=== PATIENT | female | born 2000 | race Caucasian/White ===

== ENCOUNTER 2022-08-06 07:36 | Inpatient (IN) | payer OTHER, MEDICAID ==
[2022-08-06] VITALS (12 sets, daily range): BP systolic 138–183; BP diastolic 90–140
[~2022-08-06] VITALS: Ht 149.9 cm; Wt 45.0 kg
[2022-08-06 08:02] LABS: BASOPHILS % (AUTO) 0.7 % (0.0-2.0); EOSINOPHILS % (AUTO) 0.6 % (1.0-6.0); HEMATOCRIT 28.9 % (36-46); HEMOGLOBIN 9.3 g/dL (12.0-16.0); LYMPHOCYTES # (AUTO) 1.3 K/uL (1.0-4.8); LYMPHOCYTES % (AUTO) 20.1 % (22.0-44.0); MEAN CORPUSCULAR HEMOGLOBIN 29.6 pg (26.0-34.0); MEAN CORPUSCULAR HGB CONC 32.1 G/dL (31.0-37.0); MEAN CORPUSCULAR VOLUME 92 fL (80-100); MONOCYTES # (AUTO) 0.4 K/uL (0.1-1.0); MONOCYTES % (AUTO) 5.4 % (2.0-9.0); NEUTROPHILS # (AUTO) 4.7 K/uL (1.8-7.7); NEUTROPHILS % (AUTO) 73.2 % (40.0-70.0); PLATELET COUNT (AUTO) 223 K/uL (150-450); RED BLOOD CELL COUNT(AUTO) 3.14 MIL/uL (4.00-5.20); RED CELL DISTRIBUTION WIDTH 15.4 % (11.5-14.5)
[2022-08-06] MEDS ORDERED: FURO20TA4 PO (08:08)
[2022-08-06] MEDS ORDERED: HYDR100T28 PO (08:08)
[2022-08-06] MEDS ORDERED: LEVE250T4 PO (08:08)
[2022-08-06] MEDS ORDERED: HYDR200T4 PO (08:08)
[2022-08-06] MEDS ORDERED: AMLO10TA55 PO (08:08)
[2022-08-06 08:12] LABS: ANION GAP 14 mmol/L (8-16); CALCIUM, TOTAL 8.9 mg/dL (8.8-10.5); CARBON DIOXIDE 19 mmol/L (22-29); CHLORIDE 110 mmol/L (98-107); GLOMERULAR FILTR. RATE CALC 24 mL/min (>60); GLUCOSE,RANDOM 95 mg/dL (70-110); POTASSIUM 5.2 mmol/L (3.5-5.1); SODIUM SERUM 143 mmol/L (136-145); UREA NITROGEN, BLOOD 28 mg/dL (7-18)
[2022-08-06 08:15] LABS: B-TYPE NATRIURETIC PEPTIDE > 5000 pg/mL (0-100)
[2022-08-06 08:20] LABS: ALANINE AMINOTRANSFERASE 17 U/L (12-78); ALBUMIN 3.2 g/dL (3.4-5.0); ALKALINE PHOSPHATASE 53 U/L (46-116); ASPARTATE AMINOTRANSFERASE 27 U/L (15-37); BILIRUBIN,TOTAL 0.3 mg/dL (0.1-1.0); TOTAL PROTEIN, SERUM 6.4 g/dL (6.4-8.2)
[2022-08-06 08:21] LABS: PROTHROMBIN TIME 9.8 SEC (9.4-11.6)
[2022-08-06 08:25] LABS: INR < 0.9 (0.9-1.1)
[2022-08-06] MEDS ORDERED: LABETALOL HCL 5 MG/ML 20 ML VIAL IVP ONE ×2 (09:30→10:45)
[2022-08-06 09:34] LABS: COVID AG,FIA SOURCE NASAL SWAB
[2022-08-06] MEDS: AmLODIPine BESYLATE 10 MG TABLET PO SCH (10:00)
[2022-08-06] MEDS ORDERED: ACETAMINOPHEN 325 MG TABLET PO PRN (10:00)
[2022-08-06] MEDS ORDERED: LORazepam 2 MG/ML VIAL IVP ONE (10:15)
[2022-08-06 10:42] LABS: ABG BASE EXCESS -9.1 mmol/L (-2.0-3.0); ABG CARBOXYHEMOGLOBIN 0.3 % (0.0-3.0); ABG HCO3 17.5 mmol/L (22.0-26.0); ABG OXYGEN CONTENT 15.2 mL/dL (15.0-23.0); ABG OXYGEN SATURATION 93.5 % (95.0-98.0); ABG OXYHEMOGLOBIN 93.2 % (94.0-100.0); ABG PCO2 41 mmHg (35-45); ABG TOTAL HEMOGLOBIN 11.5 G/dL (12.0-18.0); PO2, ARTERIAL BG 90.2 mmHg (80.0-100.0); SOURCE, BLOOD GAS ARTERIAL; TEMPERATURE, FAHRENHEIT, BG 98.6 FAHREN (96.0-98.6)
[2022-08-06 10:44] LABS: ABG PH 7.264 (7.350-7.450)
[2022-08-06 10:45] LABS: ABG A-A DIFF O2 582.3 mmHg (10-20.0); O2 DEVICE,BLOOD GAS BIPAP (ROOM AIR); SITE, BLOOD GAS LFT RADIAL
[2022-08-06] MEDS ORDERED: MORPHINE SULFATE 2 MG/ML SYRINGE IVP ONE (10:45)
[2022-08-06 10:46] LABS: SPONTANEOUS VT, BG 557 ml
[2022-08-06] MEDS ORDERED: CARV3.1231 PO (10:48)
[2022-08-06] MEDS ORDERED: AZAT50TA21 PO (10:48)
[2022-08-06] MEDS ORDERED: MYCO250C27 PO (10:48)
[2022-08-06] MEDS ORDERED: CLON1PAT14 TP (10:48)
[2022-08-06] MEDS ORDERED: CHOL25TA4 PO (10:48)
[2022-08-06] MEDS ORDERED: ESTR0.5T PO (10:48)
[2022-08-06 12:09] LABS: APPEARANCE,URINE CLEAR (CLEAR); BILIRUBIN,URINE NEGATIVE (NEGATIVE); GLUCOSE, URINE (UA) NEGATIVE (NEGATIVE); KETONES,URINE NEGATIVE (NEGATIVE); LEUKOCYTE ESTERASE ,URINE NEGATIVE (NEGATIVE); NITRATE,URINE NEGATIVE (NEGATIVE); OCCULT BLOOD,URINE TRACE (NEGATIVE); PH,URINE 8.5 (5.0-8.0); PROTEIN,URINE 300-600,SEE CONFIRM mg/dL (NEGATIVE); UROBILINOGEN,URINE <=1.0 mg/dL (<=1.0)
[2022-08-06 13:30] LABS: BACTERIA,URINE None Seen /HPF (None Seen); RBC,URINE 0-2 /HPF (0-2); SULFOSALICYLIC ACID,URINE 2+ (Negative); WBC,URINE None Seen /HPF (0-5)
[2022-08-06] MEDS ORDERED: HEPARIN SODIUM,PORCINE 1,000 UNITS/ML VIAL IVCATH ONE ×2 (14:00)
[2022-08-06] MEDS: HEPARIN SODIUM,PORCINE 5,000 UNITS/ML VIAL SQ SCH (16:23)
[2022-08-06] MEDS: CefTRIAXone 1 GM/DEXTROSE 50 ML IV SCH (16:24)
[2022-08-06] MEDS: DOXYCYCLINE HYCLATE 100 MG TABLET PO SCH ×2 (16:25→20:16)
[2022-08-06] MEDS ORDERED: SODIUM CHLORIDE 0.9% 250 ML IV ONE (16:40)
[2022-08-06] MEDS: DOCUSATE SODIUM 100 MG CAPSULE PO SCH (20:16)
[2022-08-06] MEDS: LevETIRAcetam 250 MG TABLET PO SCH (20:16)
[2022-08-06] MEDS: LABETALOL HCL 5 MG/ML 20 ML VIAL IVP PRN ×2 (20:17→22:18)
[2022-08-07] VITALS (8 sets, daily range): BP systolic 128–149; BP diastolic 86–116
[2022-08-07] MEDS: HEPARIN SODIUM,PORCINE 5,000 UNITS/ML VIAL SQ SCH ×3 (00:40→15:59)
[2022-08-07] MEDS: LABETALOL HCL 5 MG/ML 20 ML VIAL IVP PRN ×2 (00:52→04:22)
[2022-08-07] MEDS: OxyCODONE HCL/ACETAMINOPHEN 5-325 MG TABLET PO PRN ×2 (01:57→13:04)
[2022-08-07] MEDS: ONDANSETRON HCL 4 MG/2 ML VIAL IVP PRN ×2 (04:21→20:01)
[2022-08-07 05:51] LABS: BASOPHILS % (AUTO) 0.6 % (0.0-2.0); EOSINOPHILS % (AUTO) 0.1 % (1.0-6.0); HEMATOCRIT 24.5 % (36-46); LYMPHOCYTES # (AUTO) 0.9 K/uL (1.0-4.8); MEAN CORPUSCULAR HEMOGLOBIN 29.6 pg (26.0-34.0); MEAN CORPUSCULAR HGB CONC 32.8 G/dL (31.0-37.0); MEAN CORPUSCULAR VOLUME 91 fL (80-100); MONOCYTES # (AUTO) 0.4 K/uL (0.1-1.0); MONOCYTES % (AUTO) 4.9 % (2.0-9.0); NEUTROPHILS # (AUTO) 6.1 K/uL (1.8-7.7); NEUTROPHILS % (AUTO) 82.4 % (40.0-70.0); PLATELET COUNT (AUTO) 174 K/uL (150-450); RED BLOOD CELL COUNT(AUTO) 2.71 MIL/uL (4.00-5.20); RED CELL DISTRIBUTION WIDTH 15.7 % (11.5-14.5)
[2022-08-07 06:15] LABS: CREATININE 2.28 mg/dL (0.60-1.30); MAGNESIUM 1.7 mg/dL (1.80-2.40); PHOSPHORUS 4.9 mg/dL (2.5-4.9); POTASSIUM 5.1 mmol/L (3.5-5.1)
[2022-08-07] MEDS: AmLODIPine BESYLATE 10 MG TABLET PO SCH (09:01)
[2022-08-07] MEDS: DOCUSATE SODIUM 100 MG CAPSULE PO SCH ×2 (09:01→20:01)
[2022-08-07] MEDS: HYDROXYCHLOROQUINE SULFATE 200 MG TABLET PO SCH (09:02)
[2022-08-07] MEDS: DOXYCYCLINE HYCLATE 100 MG TABLET PO SCH ×2 (09:02→20:01)
[2022-08-07] MEDS: LABETALOL HCL 200 MG TABLET PO SCH ×2 (09:02→20:01)
[2022-08-07] MEDS: LevETIRAcetam 250 MG TABLET PO SCH ×2 (09:02→20:01)
[2022-08-07] MEDS: FAMOTIDINE 20 MG TABLET PO SCH (09:02)
[2022-08-07] MEDS ORDERED: ZOLPIDEM TARTRATE 5 MG TABLET PO PRN (13:30)
[2022-08-07] MEDS: CefTRIAXone 1 GM/DEXTROSE 50 ML IV SCH (15:59)
[2022-08-07] MEDS ORDERED: HEPARIN SODIUM,PORCINE 1,000 UNITS/ML VIAL IVP ONE (16:24)
[2022-08-07] MEDS ORDERED: CARV3 PO (18:23)
[2022-08-07] MEDS ORDERED: MYCOPHENOLATE MOFETIL 250 MG CAPSULE PO SCH (21:00)
[2022-08-08] VITALS (16 sets, daily range): BP systolic 119–153; BP diastolic 76–119
[2022-08-08] MEDS: ALBUTEROL SULFATE 2.5 MG/0.5 ML NEB SOLUTION NEB PRN (01:56)
[2022-08-08] MEDS: LABETALOL HCL 5 MG/ML 20 ML VIAL IVP PRN ×2 (03:27→17:48)
[2022-08-08] MEDS: OxyCODONE HCL/ACETAMINOPHEN 5-325 MG TABLET PO PRN (03:32)
[2022-08-08 05:30] LABS: CREATININE 3.17 mg/dL (0.60-1.30); MAGNESIUM 1.6 mg/dL (1.80-2.40); PHOSPHORUS 6.3 mg/dL (2.5-4.9); POTASSIUM 3.9 mmol/L (3.5-5.1)
[2022-08-08 06:18] LABS: BASOPHILS % (AUTO) 0.9 % (0.0-2.0); EOSINOPHILS % (AUTO) 2.7 % (1.0-6.0); HEMATOCRIT 21.8 % (36-46); HEMOGLOBIN 7.1 g/dL (12.0-16.0); LYMPHOCYTES # (AUTO) 0.7 K/uL (1.0-4.8); LYMPHOCYTES % (AUTO) 20.1 % (22.0-44.0); MEAN CORPUSCULAR HEMOGLOBIN 29.5 pg (26.0-34.0); MEAN CORPUSCULAR HGB CONC 32.5 G/dL (31.0-37.0); MEAN CORPUSCULAR VOLUME 91 fL (80-100); MONOCYTES # (AUTO) 0.2 K/uL (0.1-1.0); MONOCYTES % (AUTO) 7.3 % (2.0-9.0); NEUTROPHILS # (AUTO) 2.3 K/uL (1.8-7.7); PLATELET COUNT (AUTO) 122 K/uL (150-450); RED BLOOD CELL COUNT(AUTO) 2.41 MIL/uL (4.00-5.20); RED CELL DISTRIBUTION WIDTH 15.7 % (11.5-14.5)
[2022-08-08] MEDS: DOXYCYCLINE HYCLATE 100 MG TABLET PO SCH ×3 (08:54→21:00)
[2022-08-08] MEDS: DOCUSATE SODIUM 100 MG CAPSULE PO SCH ×2 (08:54→21:17)
[2022-08-08] MEDS: AmLODIPine BESYLATE 10 MG TABLET PO SCH (08:54)
[2022-08-08] MEDS: ETHYL ALCOHOL 62% ANTISEPTIC NASAL SANITIZER 0.6 ML AMPUL NASAL SCH ×2 (08:54→21:17)
[2022-08-08] MEDS: HYDROXYCHLOROQUINE SULFATE 200 MG TABLET PO SCH (08:55)
[2022-08-08] MEDS: LevETIRAcetam 250 MG TABLET PO SCH ×2 (08:55→21:17)
[2022-08-08] MEDS: FAMOTIDINE 20 MG TABLET PO SCH (08:55)
[2022-08-08] MEDS: LABETALOL HCL 200 MG TABLET PO SCH ×2 (08:55→21:18)
[2022-08-08] MEDS ORDERED: PredniSONE 10 MG TABLET PO SCH (09:00)
[2022-08-08] MEDS ORDERED: MYCOPHENOLATE MOFETIL 250 MG CAPSULE PO SCH (09:00)
[2022-08-08] MEDS: METOCLOPRAMIDE HCL 5 MG/ML 2 ML VIAL IVP PRN (10:44)
[2022-08-08] MEDS ORDERED: EPOETIN ALFA 10,000 UNITS/ML 2 ML VIAL SQ ONE (10:45)
[2022-08-08] MEDS: CefTRIAXone 1 GM/DEXTROSE 50 ML IV SCH (16:08)
[2022-08-08] MEDS ORDERED: ALBUMIN HUMAN 25%-12.5GM/50ML IV BOTTLE IV ONE ×2 (16:45→19:15)
[2022-08-08] MEDS ORDERED: HEPARIN SODIUM,PORCINE 1,000 UNITS/ML VIAL IVCATH ONE ×2 (16:45)
[2022-08-08] MEDS ORDERED: HEPARIN SODIUM,PORCINE 1,000 UNITS/ML VIAL IVP ONE (19:15)
[2022-08-08] MEDS: HEPARIN SODIUM,PORCINE 5,000 UNITS/ML VIAL SQ SCH ×2 (21:00)
[2022-08-09] VITALS (7 sets, daily range): BP systolic 123–149; BP diastolic 82–104
[2022-08-09 05:20] LABS: BASOPHILS % (AUTO) 1.1 % (0.0-2.0); EOSINOPHILS % (AUTO) 5.1 % (1.0-6.0); HEMATOCRIT 24.8 % (36-46); HEMOGLOBIN 8.1 g/dL (12.0-16.0); LYMPHOCYTES # (AUTO) 0.5 K/uL (1.0-4.8); LYMPHOCYTES % (AUTO) 20.8 % (22.0-44.0); MEAN CORPUSCULAR HEMOGLOBIN 29.7 pg (26.0-34.0); MEAN CORPUSCULAR HGB CONC 32.7 G/dL (31.0-37.0); MEAN CORPUSCULAR VOLUME 91 fL (80-100); MONOCYTES # (AUTO) 0.2 K/uL (0.1-1.0); MONOCYTES % (AUTO) 8.2 % (2.0-9.0); NEUTROPHILS # (AUTO) 1.6 K/uL (1.8-7.7); NEUTROPHILS % (AUTO) 64.8 % (40.0-70.0); PLATELET COUNT (AUTO) 153 K/uL (150-450); RED BLOOD CELL COUNT(AUTO) 2.74 MIL/uL (4.00-5.20); RED CELL DISTRIBUTION WIDTH 15.2 % (11.5-14.5)
[2022-08-09 05:38] LABS: CALCIUM, TOTAL 9.2 mg/dL (8.8-10.5); CREATININE 2.18 mg/dL (0.60-1.30); MAGNESIUM 1.4 mg/dL (1.80-2.40); PHOSPHORUS 3.9 mg/dL (2.5-4.9); POTASSIUM 3.8 mmol/L (3.5-5.1)
[2022-08-09] MEDS: HEPARIN SODIUM,PORCINE 5,000 UNITS/ML VIAL SQ SCH ×2 (09:00→20:17)
[2022-08-09] MEDS ORDERED: EPOETIN ALFA 10,000 UNITS/ML 2 ML VIAL SQ SCH (09:00)
[2022-08-09] MEDS: AmLODIPine BESYLATE 10 MG TABLET PO SCH (09:52)
[2022-08-09] MEDS: LevETIRAcetam 250 MG TABLET PO SCH ×2 (09:54→20:17)
[2022-08-09] MEDS: LABETALOL HCL 200 MG TABLET PO SCH ×2 (09:54→20:16)
[2022-08-09] MEDS: DOCUSATE SODIUM 100 MG CAPSULE PO SCH ×2 (09:55→20:17)
[2022-08-09] MEDS: DOXYCYCLINE HYCLATE 100 MG TABLET PO SCH ×2 (09:55→20:17)
[2022-08-09] MEDS: ETHYL ALCOHOL 62% ANTISEPTIC NASAL SANITIZER 0.6 ML AMPUL NASAL SCH ×2 (09:55→20:17)
[2022-08-09] MEDS: HYDROXYCHLOROQUINE SULFATE 200 MG TABLET PO SCH (09:55)
[2022-08-09] MEDS: FAMOTIDINE 20 MG TABLET PO SCH (09:56)
[2022-08-09] MEDS: METOCLOPRAMIDE HCL 5 MG/ML 2 ML VIAL IVP PRN (15:38)
[2022-08-09] MEDS: CefTRIAXone 1 GM/DEXTROSE 50 ML IV SCH (15:38)
[2022-08-09] MEDS ORDERED: 0.9% SODIUM CHLORIDE 5 ML NEB SOLUTION NEB ONE (16:43)
[2022-08-09] MEDS: ALBUTEROL SULFATE 2.5 MG/0.5 ML NEB SOLUTION NEB PRN (16:52)
[2022-08-10] VITALS (15 sets, daily range): BP systolic 116–139; BP diastolic 82–105
[2022-08-10] MEDS: ETHYL ALCOHOL 62% ANTISEPTIC NASAL SANITIZER 0.6 ML AMPUL NASAL SCH ×2 (10:32→20:02)
[2022-08-10] MEDS: DOCUSATE SODIUM 100 MG CAPSULE PO SCH ×2 (10:33→20:03)
[2022-08-10] MEDS: FAMOTIDINE 20 MG TABLET PO SCH (10:33)
[2022-08-10] MEDS: AmLODIPine BESYLATE 10 MG TABLET PO SCH (10:33)
[2022-08-10] MEDS: LABETALOL HCL 200 MG TABLET PO SCH ×2 (10:34→20:03)
[2022-08-10] MEDS: LevETIRAcetam 250 MG TABLET PO SCH ×2 (10:34→20:03)
[2022-08-10] MEDS: HYDROXYCHLOROQUINE SULFATE 200 MG TABLET PO SCH (10:34)
[2022-08-10] MEDS: DOXYCYCLINE HYCLATE 100 MG TABLET PO SCH ×2 (10:34→20:03)
[2022-08-10] MEDS: HEPARIN SODIUM,PORCINE 5,000 UNITS/ML VIAL SQ SCH ×2 (10:35→20:02)
[2022-08-10] MEDS: CefTRIAXone 1 GM/DEXTROSE 50 ML IV SCH (16:00)
[2022-08-10] MEDS ORDERED: HEPARIN SODIUM,PORCINE 1,000 UNITS/ML VIAL IVCATH ONE ×2 (19:00)
[2022-08-10] MEDS: ONDANSETRON HCL 4 MG/2 ML VIAL IVP PRN (21:05)
[2022-08-10] MEDS ORDERED: HEPARIN SODIUM,PORCINE 1,000 UNITS/ML VIAL IVP ONE (22:23)
== END 2022-08-10 22:24 | disposition short-term general hospital (02) | DRG 291 ==
LOC: EMS 07:40 → ICU 12:24 → 5N 08-09 21:15
PROVIDERS: ADMIT Internal Medicine; ATTEND Internal Medicine
PROC: 5A1D70Z Performance of Urinary Filtration, Intermittent, Less than 6 Hours Per Day (ICD-10-PCS; principal; 2022-08-10)
DX: I13.2 Hypertensive heart and chronic kidney disease with heart failure and with stage 5 chronic kidney disease, or end stage renal disease (principal); E43 Unspecified severe protein-calorie malnutrition; J96.01 Acute respiratory failure with hypoxia; I50.23 Acute on chronic systolic (congestive) heart failure; N18.6 End stage renal disease; N17.9 Acute kidney failure, unspecified; I42.9 Cardiomyopathy, unspecified; Z20.822 Contact with and (suspected) exposure to COVID-19; M32.14 Glomerular disease in systemic lupus erythematosus; D63.8 Anemia in other chronic diseases classified elsewhere; I16.0 Hypertensive urgency; E87.5 Hyperkalemia; Z88.2 Allergy status to sulfonamides; Z88.8 Allergy status to other drugs, medicaments and biological substances; Z79.899 Other long term (current) drug therapy; Z79.84 Long term (current) use of oral hypoglycemic drugs; Z99.2 Dependence on renal dialysis; Z68.20 Body mass index [BMI] 20.0-20.9, adult; Z79.624 Long term (current) use of inhibitors of nucleotide synthesis
CPT/HCPCS: 36600; 71045; 71250; 80048; 80053; 81001; 81002; 82805; 83735; 83880; 84100; 84145; 84484; 84703; 85025; 85610; 85730; 87081; 87340; 90935; 93005; 93306; 94640; 94660; 99291; G0378; J0696; J0885; J1644; J2060; J2405; J2765; J3490; J7050; J7500; J7517; P9047; 36415-L1; 36415-TC; J7512; J7613; U0003; Z7610

== ENCOUNTER 2022-10-09 19:13 | Inpatient (IN) | payer OTHER, MEDICAID ==
[~2022-10-09] VITALS: Ht 157.5 cm; Wt 50.6 kg
[~2022-10-09 19:13] MED LIST: AMLO10TA55 PO; CARV3 PO; CHOL25TA4 PO; CLON1PAT14 TP; ESTR0.5T PO; FURO20TA4 PO; HEPARIN SODIUM,PORCINE 1,000 UNITS/ML VIAL ONE; HYDR100T28 PO; HYDR200T4 PO; LEVE250T4 PO
[2022-10-09] MEDS ORDERED: PROPOFOL 1000 MG/ISO-OSM 100 ML IV PRN (19:30)
[2022-10-09] MEDS ORDERED: SUCCINYLCHOLINE CHLORIDE 20 MG/ML 10 ML VIAL IVP ONE (19:30)
[2022-10-09] MEDS ORDERED: ETOMIDATE 2 MG/ML 10 ML VIAL IVP ONE (19:30)
[2022-10-09 19:35] LABS: BASOPHILS % (AUTO) 1.1 % (0.0-2.0); EOSINOPHILS % (AUTO) 0.2 % (1.0-6.0); HEMATOCRIT 43.7 % (36-46); HEMOGLOBIN 12.3 g/dL (12.0-16.0); LYMPHOCYTES # (AUTO) 2.4 K/uL (1.0-4.8); LYMPHOCYTES % (AUTO) 28.3 % (22.0-44.0); MEAN CORPUSCULAR HEMOGLOBIN 29.5 pg (26.0-34.0); MEAN CORPUSCULAR HGB CONC 28.1 G/dL (31.0-37.0); MEAN CORPUSCULAR VOLUME 105 fL (80-100); MONOCYTES # (AUTO) 0.5 K/uL (0.1-1.0); NEUTROPHILS # (AUTO) 5.5 K/uL (1.8-7.7); NEUTROPHILS % (AUTO) 64.4 % (40.0-70.0); RED BLOOD CELL COUNT(AUTO) 4.16 MIL/uL (4.00-5.20); RED CELL DISTRIBUTION WIDTH 20.4 % (11.5-14.5)
[2022-10-09 19:39] LABS: ANION GAP 22 mmol/L (8-16); CALCIUM, TOTAL 9.1 mg/dL (8.8-10.5); CARBON DIOXIDE 13 mmol/L (22-29); CHLORIDE 100 mmol/L (98-107); GLUCOSE,RANDOM 56 mg/dL (70-110); POTASSIUM 5.7 mmol/L (3.5-5.1); SODIUM SERUM 135 mmol/L (136-145); UREA NITROGEN, BLOOD 37 mg/dL (7-18)
[2022-10-09 19:41] LABS: GLOMERULAR FILTR. RATE CALC 10 mL/min (>60)
[2022-10-09 19:52] LABS: PLATELET COUNT (AUTO) 89 K/uL (150-450); PLATELET MORPHOLOGY COMMENT LARGE PLTS PRESENT
[2022-10-09] MEDS ORDERED: NOREPINEPHRINE 8 MG/D5%-WATER 250 ML IV PRN (20:00)
[2022-10-09 20:01] LABS: B-TYPE NATRIURETIC PEPTIDE > 5000 pg/mL (0-100)
[2022-10-09 20:03] LABS: INR 1.2 (0.9-1.1); PROTHROMBIN TIME 12.8 SEC (9.4-11.6)
[2022-10-09 20:05] LABS: ALANINE AMINOTRANSFERASE 42 U/L (12-78); ALBUMIN 3.1 g/dL (3.4-5.0); ALKALINE PHOSPHATASE 108 U/L (46-116); ASPARTATE AMINOTRANSFERASE 174 U/L (15-37); BILIRUBIN,TOTAL 1.2 mg/dL (0.1-1.0); CREATINE KINASE, TOTAL ONLY 119 U/L (26-192); TOTAL PROTEIN, SERUM 6.3 g/dL (6.4-8.2)
[2022-10-09 21:29] LABS: COVID AG,FIA SOURCE NASOPHARYNGEAL
[2022-10-09 21:57] LABS: ABG BASE EXCESS -21.9 mmol/L (-2.0-3.0); ABG CARBOXYHEMOGLOBIN 0.3 % (0.0-3.0); ABG METHEMOGLOBIN 0.3 % (0.0-1.5); ABG OXYGEN CONTENT 6.5 mL/dL (15.0-23.0); ABG OXYHEMOGLOBIN 37.8 % (94.0-100.0); ABG PCO2 45 mmHg (35-45); ABG TOTAL HEMOGLOBIN 12.2 G/dL (12.0-18.0); SOURCE, BLOOD GAS ARTERIAL; TEMPERATURE, FAHRENHEIT, BG 97.1 FAHREN (96.0-98.6)
[2022-10-09 21:58] LABS: ABG PH 6.962 (7.350-7.450); PO2, ARTERIAL BG 35.9 mmHg (80.0-100.0)
[2022-10-09 21:59] LABS: ABG HCO3 8.1 mmol/L (22.0-26.0); O2 DEVICE,BLOOD GAS VENTILATOR (ROOM AIR); PEEP,BG 5 cm H2O; SITE, BLOOD GAS RT FEMORAL; VT, ABG 400 ml
[2022-10-09] MEDS ORDERED: SODIUM BICARBONATE [ADULT] 8.4% 50 MEQ/50 ML SYRINGE IVP ONE (22:15)
[2022-10-09] MEDS ORDERED: INSULIN LISPRO 100 UNITS/ML SQ ONE (22:30)
[2022-10-09] MEDS ORDERED: DOPamine 400MG/D5W[STANDARD] 250 ML IV PRN (22:30)
[2022-10-09] MEDS ORDERED: DEXTROSE 50%-WATER 25 GM/50 ML SYRINGE IVP ONE (22:30)
[2022-10-09] MEDS ORDERED: CALCIUM GLUCONATE 100 MG/ML 10 ML IVP ONE (22:30)
[2022-10-09] MEDS ORDERED: ONDANSETRON HCL 4 MG/2 ML VIAL IVP PRN (22:30)
[2022-10-09 23:55] LABS: CREATININE 4.79 mg/dL (0.60-1.30); POTASSIUM 5.1 mmol/L (3.5-5.1)
[2022-10-09 23:58] LABS: C-REACTIVE PROTEIN QUANT 0.16 mg/dL (0.00-0.30); MAGNESIUM 2.5 mg/dL (1.80-2.40)
[2022-10-10] VITALS (13 sets, daily range): BP systolic 94–139; BP diastolic 8–99
[2022-10-10] MEDS ORDERED: IPRATROPIUM BROMIDE 0.5 MG/2.5 ML NEB SOLUTION NEB ONE
[2022-10-10] MEDS ORDERED: ALBUTEROL SULFATE 2.5 MG/0.5 ML NEB SOLUTION NEB ONE
[2022-10-10] MEDS ORDERED: PIPERACILLIN SODIUM/TAZOBACTAM 2.25 GM in DEXTROSE 5%-WATER 50 ML IV SCH ×2
[2022-10-10 00:02] LABS: HEMATOCRIT 31.8 % (36-46); HEMOGLOBIN 9.2 g/dL (12.0-16.0); MEAN CORPUSCULAR HEMOGLOBIN 29.3 pg (26.0-34.0); MEAN CORPUSCULAR VOLUME 101 fL (80-100); PLATELET COUNT (AUTO) 52 K/uL (150-450); RED BLOOD CELL COUNT(AUTO) 3.15 MIL/uL (4.00-5.20); RED CELL DISTRIBUTION WIDTH 20.5 % (11.5-14.5)
[2022-10-10] MEDS ORDERED: CYCL100C PO ×2 (00:04→13:28)
[2022-10-10] MEDS ORDERED: HYDR200T38 PO (00:04)
[2022-10-10] MEDS ORDERED: DOCU-119 PO (00:04)
[2022-10-10] MEDS ORDERED: PRED-554 PO (00:04)
[2022-10-10] MEDS ORDERED: CARV12.530 PO (00:04)
[2022-10-10] MEDS ORDERED: TRIA60LO13 TP (00:04)
[2022-10-10] MEDS ORDERED: AZAT50TA21 PO (00:04)
[2022-10-10] MEDS ORDERED: ISOS10TA16 PO (00:04)
[2022-10-10 00:10] LABS: PHOSPHORUS 11.1 mg/dL (2.5-4.9)
[2022-10-10] MEDS ORDERED: DEXTROSE 5% IV PRN (00:15)
[2022-10-10] MEDS ORDERED: WATER IV PRN (00:15)
[2022-10-10] MEDS ORDERED: PANTOPRAZOLE SODIUM 40 MG/VIAL IVP ONE (00:15)
[2022-10-10] MEDS ORDERED: TAZOBACTAM IV PRN (00:15)
[2022-10-10] MEDS ORDERED: PIPERACILLIN SODIUM IV PRN (00:15)
[2022-10-10] MEDS ORDERED: PIPERACILLIN SODIUM/TAZOBACTAM 0.75 GM in DEXTROSE 5%-WATER 50 ML IV PRN (00:20)
[2022-10-10 00:44] LABS: BAND NEUTROPHILS % (MANUAL) 11 % (0-5); LYMPHOCYTES % (MANUAL) 18 % (22-44); METAMYELOCYTES % 1 % (0-0); MONOCYTES % (MANUAL) 4 % (2-9); SEGMENTED NEUTROPHILS % 66 % (40-70)
[2022-10-10 00:46] LABS: PLATELET MORPHOLOGY COMMENT LARGE PLTS PRESENT
[2022-10-10 01:31] LABS: AMPHET/METH SCREEN,URINE NEGATIVE (NEGATIVE); BARBITURATE SCREEN, URINE NEGATIVE (NEGATIVE); BENZODIAZEPINES SCREEN,URINE NEGATIVE (NEGATIVE); CANNABINOID SCREEN,URINE NEGATIVE (NEGATIVE); COCAINE SCREEN,URINE NEGATIVE (NEGATIVE); METHADONE SCREEN, URINE NEGATIVE (NEGATIVE); OPIATE SCREEN,URINE NEGATIVE (NEGATIVE)
[2022-10-10 01:32] LABS: PHENCYCLIDINE SCREEN,URINE NEGATIVE (NEGATIVE)
[2022-10-10 01:33] LABS: APPEARANCE,URINE HAZY (CLEAR); BILIRUBIN,URINE NEGATIVE (NEGATIVE); GLUCOSE, URINE (UA) 300-500 mg/dL (NEGATIVE); KETONES,URINE TRACE mg/dL (NEGATIVE); LEUKOCYTE ESTERASE ,URINE NEGATIVE (NEGATIVE); NITRATE,URINE NEGATIVE (NEGATIVE); OCCULT BLOOD,URINE LARGE (NEGATIVE); PH,URINE 7.5 (5.0-8.0); PROTEIN,URINE 300-600,SEE CONFIRM mg/dL (NEGATIVE); SPECIFIC GRAVITIY, URINE 1.014 (1.003-1.030); UROBILINOGEN,URINE <=1.0 mg/dL (<=1.0)
[2022-10-10] MEDS: FentaNYL CIT 1000MCG/0.9% NACL 100 ML IV PRN ×4 (01:36→21:53)
[2022-10-10 01:43] LABS: BACTERIA,URINE Rare /HPF (None Seen); RBC,URINE 26-50 /HPF (0-2)
[2022-10-10 01:44] LABS: HYALINE CASTS, URINE 0-2 /LPF (None Seen)
[2022-10-10 01:45] LABS: SULFOSALICYLIC ACID,URINE 4+ (Negative)
[2022-10-10 02:26] LABS: ABG BASE EXCESS -10.9 mmol/L (-2.0-3.0); ABG CARBOXYHEMOGLOBIN 0.1 % (0.0-3.0); ABG HCO3 15.5 mmol/L (22.0-26.0); ABG METHEMOGLOBIN 0.3 % (0.0-1.5); ABG OXYHEMOGLOBIN 71.8 % (94.0-100.0); ABG PCO2 46 mmHg (35-45); ABG TOTAL HEMOGLOBIN 12.9 G/dL (12.0-18.0); SOURCE, BLOOD GAS ARTERIAL; TEMPERATURE, FAHRENHEIT, BG 95.1 FAHREN (96.0-98.6)
[2022-10-10 02:27] LABS: ABG OXYGEN SATURATION 72.1 % (95.0-98.0); ABG PH 7.194 (7.350-7.450); PO2, ARTERIAL BG 43.9 mmHg (80.0-100.0); SITE, BLOOD GAS RT FEMORAL
[2022-10-10 02:28] LABS: O2 DEVICE,BLOOD GAS VENTILATOR (ROOM AIR); PEEP,BG 8 cm H2O; SPONTANEOUS VT, BG 407 ml; VT, ABG 320 ml
[2022-10-10 03:14] LABS: LACTIC ACID 9.6 mmol/L (0.4-2.0)
[2022-10-10] MEDS ORDERED: MIDAZOLAM HCL 2 MG/2 ML VIAL IVP ONE (03:45)
[2022-10-10] MEDS ORDERED: SODIUM CHLORIDE 0.9% 500 ML IV ONE (03:54)
[2022-10-10] MEDS ORDERED: EPINEPHrine 1:10,000 [1 MG/10 ML] SYRINGE ONE (03:55)
[2022-10-10] MEDS: LevETIRAcetam 250 MG in DEXTROSE 5%-WATER 100 ML IV SCH ×2 (04:00→16:16)
[2022-10-10 04:11] LABS: GLUCOSE,POINT OF CARE 286 MG/DL (70-110)
[2022-10-10 04:11] LABS: GLUCOSE,POINT OF CARE 46 MG/DL (70-110)
[2022-10-10] MEDS: MethylPREDNISolone SOD SUCC 125 MG/2 ML VIAL IVP SCH ×2 (04:25→12:38)
[2022-10-10] MEDS ORDERED: HYDROCORTISONE SOD SUCC 100 MG/2 ML VIAL IVP ONE (04:30)
[2022-10-10] MEDS ORDERED: VANCOMYCIN HCL 1 GM in DEXTROSE 5%-WATER 250 ML IV PRN (04:45)
[2022-10-10] MEDS: DEXTROSE 50%-WATER 25 GM/50 ML SYRINGE IVP SCH ×3 (05:00→19:00)
[2022-10-10] MEDS ORDERED: VANCOMYCIN HCL 750 MG in DEXTROSE 5%-WATER 250 ML IV ONE (05:00)
[2022-10-10 05:21] LABS: GLUCOSE,POINT OF CARE 219 MG/DL (70-110)
[2022-10-10 05:34] LABS: INR 2.2 (0.9-1.1); PROTHROMBIN TIME 22.6 SEC (9.4-11.6)
[2022-10-10 05:37] LABS: HEMOGLOBIN 10.9 g/dL (12.0-16.0); MEAN CORPUSCULAR HEMOGLOBIN 29.2 pg (26.0-34.0); MEAN CORPUSCULAR HGB CONC 30.4 G/dL (31.0-37.0); MEAN CORPUSCULAR VOLUME 96 fL (80-100); PLATELET COUNT (AUTO) 60 K/uL (150-450); RED BLOOD CELL COUNT(AUTO) 3.74 MIL/uL (4.00-5.20); RED CELL DISTRIBUTION WIDTH 19.9 % (11.5-14.5)
[2022-10-10 05:41] LABS: CALCIUM, TOTAL 7.3 mg/dL (8.8-10.5); CREATININE 3.7 mg/dL (0.60-1.30); MAGNESIUM 1.9 mg/dL (1.80-2.40); POTASSIUM 3.3 mmol/L (3.5-5.1)
[2022-10-10] MEDS: PANTOPRAZOLE SODIUM 80 MG in SODIUM CHLORIDE 0.9% 100 ML IV SCH ×2 (05:52→14:43)
[2022-10-10] MEDS ORDERED: SODIUM CHLORIDE 0.9% 250 ML IV ONE ×2 (05:57→07:44)
[2022-10-10 06:43] LABS: ABG BASE EXCESS -10.2 mmol/L (-2.0-3.0); ABG CARBOXYHEMOGLOBIN 0.3 % (0.0-3.0); ABG HCO3 16.6 mmol/L (22.0-26.0); ABG METHEMOGLOBIN 0.3 % (0.0-1.5); ABG OXYGEN CONTENT 14.2 mL/dL (15.0-23.0); ABG OXYGEN SATURATION 85.4 % (95.0-98.0); ABG OXYHEMOGLOBIN 84.9 % (94.0-100.0); ABG PCO2 36 mmHg (35-45); ABG TOTAL HEMOGLOBIN 11.9 G/dL (12.0-18.0); SOURCE, BLOOD GAS ARTERIAL; TEMPERATURE, FAHRENHEIT, BG 95.1 FAHREN (96.0-98.6)
[2022-10-10 06:44] LABS: ABG A-A DIFF O2 631.2 mmHg (10-20.0); ABG PH 7.281 (7.350-7.450); O2 DEVICE,BLOOD GAS VENTILATOR (ROOM AIR); PO2, ARTERIAL BG 50.7 mmHg (80.0-100.0); SITE, BLOOD GAS ARTERIAL LINE
[2022-10-10 06:45] LABS: PEEP,BG 12 cm H2O; VT, ABG 320 ml
[2022-10-10 07:06] LABS: ALBUMIN 2.2 g/dL (3.4-5.0); BILIRUBIN,DIRECT 0.8 mg/dL (0.00-0.20); TOTAL PROTEIN, SERUM 4.7 g/dL (6.4-8.2)
[2022-10-10 07:07] LABS: BILIRUBIN,TOTAL 1.7 mg/dL (0.1-1.0)
[2022-10-10 07:49] LABS: BAND NEUTROPHILS % (MANUAL) 57 % (0-5); LYMPHOCYTES % (MANUAL) 8 % (22-44); MONOCYTES % (MANUAL) 8 % (2-9); SEGMENTED NEUTROPHILS % 27 % (40-70)
[2022-10-10 07:50] LABS: PLATELET MORPHOLOGY COMMENT LARGE PLTS PRESENT
[2022-10-10] MEDS: PROPOFOL 1000 MG/ISO-OSM 100 ML IV PRN (08:38)
[2022-10-10] MEDS ORDERED: -POST HEMODIALYSIS NOTE- MISC SCH (09:00)
[2022-10-10] MEDS: NOREPINEPHRINE 8 MG/D5%-WATER 250 ML IV PRN (10:00)
[2022-10-10 10:29] LABS: LACTIC ACID 6.9 mmol/L (0.4-2.0)
[2022-10-10 11:05] LABS: HEMATOCRIT 37.8 % (36-46); HEMOGLOBIN 11.9 g/dL (12.0-16.0)
[2022-10-10] MEDS ORDERED: MYCO500T5 PO (13:28)
[2022-10-10] MEDS ORDERED: OMEP20CA12 PO (13:28)
[2022-10-10] MEDS ORDERED: NIFE-129 PO (13:28)
[2022-10-10] MEDS ORDERED: HYDR200T4 PO (13:28)
[2022-10-10] MEDS ORDERED: DOCU-350 PO (13:28)
[2022-10-10] MEDS ORDERED: SODIUM CHLORIDE 0.9% 2,000 ML ONE (13:30)
[2022-10-10] MEDS ORDERED: *CLINICAL-MEROPENEM DOSING CLINICAL ONE (14:00)
[2022-10-10] MEDS: HYDROCORTISONE SOD SUCC 100 MG/2 ML VIAL IVP SCH (14:49)
[2022-10-10] MEDS ORDERED: *CLINICAL-RX DOSING [ENTER DRUG IN COMMENTS] CLINICAL ONE (15:00)
[2022-10-10 15:23] LABS: INFLUENZA TYPE A NEGATIVE FOR TYPE A (NEGATIVE); INFLUENZA TYPE B NEGATIVE FOR TYPE B (NEGATIVE)
[2022-10-10] MEDS ORDERED: PRIMAQUINE PHOSPHATE 26.3 MG [15 MG BASE] TABLET PO SCH (16:00)
[2022-10-10 16:54] LABS: HEMATOCRIT 33.1 % (36-46); HEMOGLOBIN 10.8 g/dL (12.0-16.0)
[2022-10-10 17:07] LABS: CREATININE 3.04 mg/dL (0.60-1.30); MAGNESIUM 1.6 mg/dL (1.80-2.40); PHOSPHORUS 3.5 mg/dL (2.5-4.9)
[2022-10-10 17:09] LABS: POTASSIUM 2.9 mmol/L (3.5-5.1)
[2022-10-10] MEDS: POTASSIUM CHL 10 MEQ/WATER 50 ML IV SCH ×3 (17:28→19:27)
[2022-10-10] MEDS: MEROPENEM 1 GM in SODIUM CHLORIDE 0.9% 100 ML IV SCH (17:28)
[2022-10-10] MEDS: DOXYCYCLINE HYCLATE 100 MG in DEXTROSE 5%-WATER 100 ML IV SCH (17:57)
[2022-10-10] MEDS: CLINDAMYCIN 900 MG/D5% WATER 50 ML IV SCH (19:31)
[2022-10-10 21:01] LABS: HEMATOCRIT 36.1 % (36-46); HEMOGLOBIN 11.7 g/dL (12.0-16.0)
[2022-10-10] MEDS: OSELTAMIVIR PHOSPHATE 75 MG CAPSULE PO SCH (21:02)
[2022-10-10 21:11] LABS: ABG BASE EXCESS -7.8 mmol/L (-2.0-3.0); ABG CARBOXYHEMOGLOBIN 0.3 % (0.0-3.0); ABG HCO3 19.2 mmol/L (22.0-26.0); ABG METHEMOGLOBIN 0.3 % (0.0-1.5); ABG OXYGEN CONTENT 15.7 mL/dL (15.0-23.0); ABG OXYGEN SATURATION 99.4 % (95.0-98.0); ABG OXYHEMOGLOBIN 98.8 % (94.0-100.0); ABG PCO2 23 mmHg (35-45); ABG PH 7.468 (7.350-7.450); ABG TOTAL HEMOGLOBIN 10.6 G/dL (12.0-18.0); PO2, ARTERIAL BG 336.4 mmHg (80.0-100.0); TEMPERATURE, FAHRENHEIT, BG 94.2 FAHREN (96.0-98.6)
[2022-10-10 21:12] LABS: O2 DEVICE,BLOOD GAS VENTILATOR (ROOM AIR); PEEP,BG 12 cm H2O; SITE, BLOOD GAS LFT RADIAL; SOURCE, BLOOD GAS ARTERIAL LINE; VT, ABG 320 ml
[2022-10-10 21:15] LABS: ALBUMIN 2.4 g/dL (3.4-5.0); BILIRUBIN,TOTAL 2.4 mg/dL (0.1-1.0); CALCIUM, TOTAL 7.5 mg/dL (8.8-10.5); CREATININE 2.68 mg/dL (0.60-1.30); POTASSIUM 4.8 mmol/L (3.5-5.1); TOTAL PROTEIN, SERUM 4.9 g/dL (6.4-8.2)
[2022-10-10] MEDS: FLUCONAZOLE 400 MG/NACL ISOOSM 200 ML IV SCH (21:45)
[2022-10-11] VITALS (7 sets, daily range): BP systolic 94–132; BP diastolic 57–125
[2022-10-11] MEDS: HYDROCORTISONE SOD SUCC 100 MG/2 ML VIAL IVP SCH ×4 (00:04→23:51)
[2022-10-11] MEDS: PANTOPRAZOLE SODIUM 80 MG in SODIUM CHLORIDE 0.9% 100 ML IV SCH ×3 (00:04→20:24)
[2022-10-11] MEDS: NOREPINEPHRINE 8 MG/D5%-WATER 250 ML IV PRN ×2 (00:05→16:22)
[2022-10-11] MEDS: PROPOFOL 1000 MG/ISO-OSM 100 ML IV PRN (01:37)
[2022-10-11] MEDS: CLINDAMYCIN 900 MG/D5% WATER 50 ML IV SCH ×3 (01:37→18:31)
[2022-10-11] MEDS: MEROPENEM 1 GM in SODIUM CHLORIDE 0.9% 100 ML IV SCH ×2 (02:47→16:02)
[2022-10-11] MEDS: LevETIRAcetam 250 MG in DEXTROSE 5%-WATER 100 ML IV SCH ×2 (03:28→16:20)
[2022-10-11] MEDS: DOXYCYCLINE HYCLATE 100 MG in DEXTROSE 5%-WATER 100 ML IV SCH ×2 (03:29→16:02)
[2022-10-11] MEDS ORDERED: SODIUM CHLORIDE 0.9% 250 ML IV ONE (05:33)
[2022-10-11 06:29] LABS: INR 1.9 (0.9-1.1); PROTHROMBIN TIME 19.6 SEC (9.4-11.6)
[2022-10-11 06:31] LABS: VANCOMYCIN,RANDOM 13.3 mcg/mL (25.0-50.0)
[2022-10-11] MEDS: OSELTAMIVIR PHOSPHATE 75 MG CAPSULE PO SCH ×2 (09:14→20:50)
[2022-10-11] MEDS: PRIMAQUINE PHOSPHATE 26.3 MG [15 MG BASE] TABLET PO SCH (09:24)
[2022-10-11] MEDS: [UNRECOGNIZED DRUG - OTHER] IRRIG PRN ×2 (10:41→20:27)
[2022-10-11] MEDS: NXSTAGE RFP K0 IRRIG PRN ×2 (10:41→20:27)
[2022-10-11] MEDS: CALCIUM GLUCONATE IRRIG PRN ×2 (10:41→20:27)
[2022-10-11] MEDS: POTASSIUM CHLORIDE IRRIG PRN ×2 (10:41→20:27)
[2022-10-11 11:21] LABS: CALCIUM, TOTAL 8.3 mg/dL (8.8-10.5); CREATININE 2.07 mg/dL (0.60-1.30); POTASSIUM 4.4 mmol/L (3.5-5.1)
[2022-10-11 11:24] LABS: MAGNESIUM 1.4 mg/dL (1.80-2.40); PHOSPHORUS 3.8 mg/dL (2.5-4.9)
[2022-10-11] MEDS ORDERED: VANCOMYCIN HCL 750 MG in DEXTROSE 5%-WATER 250 ML IV ONE (13:00)
[2022-10-11] MEDS: FentaNYL CIT 1000MCG/0.9% NACL 100 ML IV PRN (13:18)
[2022-10-11] MEDS ORDERED: DOPamine HCL/D5W 400 MG/250 ML IV BAG IV ONE (16:41)
[2022-10-11] MEDS ORDERED: DEXTROSE 50%-WATER 25 GM/50 ML SYRINGE IVP ONE ×3 (16:41→22:30)
[2022-10-11] MEDS ORDERED: 0.9% SODIUM CHLORIDE 1,000 ML BAG IV ONE (16:41)
[2022-10-11] MEDS ORDERED: SODIUM BICARBONATE [ADULT] 8.4% 50 MEQ/50 ML SYRINGE IVP ONE (16:41)
[2022-10-11] MEDS ORDERED: EPINEPHrine 1:10,000 [1 MG/10 ML] SYRINGE IVP ONE (16:41)
[2022-10-11] MEDS ORDERED: 0.9% SODIUM CHLORIDE 10 ML SYRINGE IVP ONE (16:41)
[2022-10-11] MEDS ORDERED: ATROPINE SULFATE 0.1 MG/ML 10 ML SYRINGE IVP ONE (16:41)
[2022-10-11 16:47] LABS: CALCIUM, TOTAL 8.3 mg/dL (8.8-10.5); CREATININE 1.87 mg/dL (0.60-1.30); MAGNESIUM 1.4 mg/dL (1.80-2.40); PHOSPHORUS 2.9 mg/dL (2.5-4.9); POTASSIUM 4.5 mmol/L (3.5-5.1)
[2022-10-11 17:06] LABS: CYCLOSPORINE A 34 ng/mL (100-400)
[2022-10-11] MEDS ORDERED: MAGNESIUM SULFATE 4 GM/WATER 100 ML IV ONE (17:45)
[2022-10-11 19:52] LABS: ABG BASE EXCESS -5.2 mmol/L (-2.0-3.0); ABG CARBOXYHEMOGLOBIN 0.3 % (0.0-3.0); ABG HCO3 21.2 mmol/L (22.0-26.0); ABG METHEMOGLOBIN 0.3 % (0.0-1.5); ABG OXYGEN CONTENT 16.2 mL/dL (15.0-23.0); ABG OXYGEN SATURATION 99.1 % (95.0-98.0); ABG OXYHEMOGLOBIN 98.5 % (94.0-100.0); ABG PCO2 23 mmHg (35-45); ABG PH 7.505 (7.350-7.450); ABG TOTAL HEMOGLOBIN 11.5 G/dL (12.0-18.0); PO2, ARTERIAL BG 141.6 mmHg (80.0-100.0); SOURCE, BLOOD GAS ARTERIAL; TEMPERATURE, FAHRENHEIT, BG 94.4 FAHREN (96.0-98.6)
[2022-10-11 19:53] LABS: ABG A-A DIFF O2 118.9 mmHg (10-20.0); O2 DEVICE,BLOOD GAS VENT (ROOM AIR); SITE, BLOOD GAS ARTERIAL LINE
[2022-10-11 19:54] LABS: PEEP,BG 5 cm H2O; VT, ABG 320 ml
[2022-10-11] MEDS: FLUCONAZOLE 400 MG/NACL ISOOSM 200 ML IV SCH (20:34)
[2022-10-11] MEDS ORDERED: 0.9% SODIUM CHLORIDE 15 ML NEB SOLUTION NEB ONE (21:53)
[2022-10-11] MEDS: DOPamine 400MG/D5W[STANDARD] 250 ML IV PRN (23:52)
[2022-10-12] VITALS: BP 102/64
[2022-10-12 01:36] LABS: GLUCOSE,POINT OF CARE 131 MG/DL (70-110)
[2022-10-12 01:36] LABS: GLUCOSE,POINT OF CARE 173 MG/DL (70-110)
[2022-10-12 01:36] LABS: GLUCOSE,POINT OF CARE 34 MG/DL (70-110)
[2022-10-12] MEDS: CLINDAMYCIN 900 MG/D5% WATER 50 ML IV SCH ×3 (01:47→18:28)
[2022-10-12] MEDS: MEROPENEM 1 GM in SODIUM CHLORIDE 0.9% 100 ML IV SCH ×2 (02:57→15:04)
[2022-10-12] MEDS: LevETIRAcetam 250 MG in DEXTROSE 5%-WATER 100 ML IV SCH ×2 (03:50→15:59)
[2022-10-12 04:00] VITALS: BP 87/59
[2022-10-12] MEDS: DOXYCYCLINE HYCLATE 100 MG in DEXTROSE 5%-WATER 100 ML IV SCH ×2 (04:03→16:00)
[2022-10-12] MEDS ORDERED: INFLUENZA VIRUS VACCINE QVS 2022-23 (6MO+)/PF 60 MCG/0.5 ML SYRINGE IM. ONE (05:00)
[2022-10-12] MEDS: [UNRECOGNIZED DRUG - OTHER] IRRIG PRN ×4 (05:32→23:58)
[2022-10-12] MEDS: POTASSIUM CHLORIDE IRRIG PRN ×4 (05:32→23:58)
[2022-10-12] MEDS: CALCIUM GLUCONATE IRRIG PRN ×4 (05:32→23:58)
[2022-10-12] MEDS: NXSTAGE RFP K0 IRRIG PRN ×4 (05:32→23:58)
[2022-10-12 05:33] LABS: BASOPHILS % (AUTO) 0.3 % (0.0-2.0); EOSINOPHILS % (AUTO) 0.2 % (1.0-6.0); HEMATOCRIT 31.5 % (36-46); LYMPHOCYTES # (AUTO) 0.4 K/uL (1.0-4.8); MEAN CORPUSCULAR HEMOGLOBIN 28.6 pg (26.0-34.0); MEAN CORPUSCULAR HGB CONC 31.8 G/dL (31.0-37.0); MEAN CORPUSCULAR VOLUME 90 fL (80-100); MONOCYTES # (AUTO) 0.4 K/uL (0.1-1.0); NEUTROPHILS # (AUTO) 40.9 K/uL (1.8-7.7); RED CELL DISTRIBUTION WIDTH 19.2 % (11.5-14.5)
[2022-10-12] MEDS: PANTOPRAZOLE SODIUM 80 MG in SODIUM CHLORIDE 0.9% 100 ML IV SCH ×2 (05:33→15:38)
[2022-10-12] MEDS: NOREPINEPHRINE 8 MG/D5%-WATER 250 ML IV PRN ×2 (05:35→18:32)
[2022-10-12 05:49] LABS: INR 1.2 (0.9-1.1); PROTHROMBIN TIME 12.9 SEC (9.4-11.6)
[2022-10-12 05:51] LABS: ALBUMIN 2.4 g/dL (3.4-5.0); BILIRUBIN,TOTAL 1.8 mg/dL (0.1-1.0); C-REACTIVE PROTEIN QUANT 16.29 mg/dL (0.00-0.30); CALCIUM, TOTAL 8.5 mg/dL (8.8-10.5); CREATININE 1.83 mg/dL (0.60-1.30); POTASSIUM 4.9 mmol/L (3.5-5.1); TOTAL PROTEIN, SERUM 5.4 g/dL (6.4-8.2); VANCOMYCIN,RANDOM 20.6 mcg/mL (25.0-50.0)
[2022-10-12 06:13] LABS: NEUTROPHILS % (AUTO) 97.5 % (40.0-70.0)
[2022-10-12 06:15] LABS: PLATELET COUNT (AUTO) 15 K/uL (150-450)
[2022-10-12 06:22] LABS: GLUCOSE,POINT OF CARE 90 MG/DL (70-110)
[2022-10-12 06:22] LABS: GLUCOSE,POINT OF CARE 117 MG/DL (70-110)
[2022-10-12 07:34] LABS: PLATELET MORPHOLOGY COMMENT GIANT PLTS PRESENT
[2022-10-12 08:00] VITALS: BP 120/80
[2022-10-12] MEDS: ETHYL ALCOHOL 62% ANTISEPTIC NASAL SANITIZER 0.6 ML AMPUL NASAL SCH ×2 (08:33→20:54)
[2022-10-12] MEDS: OSELTAMIVIR PHOSPHATE 75 MG CAPSULE PO SCH ×2 (08:34→20:54)
[2022-10-12] MEDS: HYDROCORTISONE SOD SUCC 100 MG/2 ML VIAL IVP SCH ×2 (08:36→15:59)
[2022-10-12] MEDS: PRIMAQUINE PHOSPHATE 26.3 MG [15 MG BASE] TABLET PO SCH (08:36)
[2022-10-12 08:54] LABS: ABG BASE EXCESS -3.4 mmol/L (-2.0-3.0); ABG CARBOXYHEMOGLOBIN 0.7 % (0.0-3.0); ABG HCO3 22.1 mmol/L (22.0-26.0); ABG METHEMOGLOBIN 0.3 % (0.0-1.5); ABG OXYGEN CONTENT 16.2 mL/dL (15.0-23.0); ABG OXYGEN SATURATION 98.8 % (95.0-98.0); ABG OXYHEMOGLOBIN 97.8 % (94.0-100.0); ABG PCO2 34 mmHg (35-45); ABG PH 7.416 (7.350-7.450); ABG TOTAL HEMOGLOBIN 11.6 G/dL (12.0-18.0); PO2, ARTERIAL BG 129.6 mmHg (80.0-100.0); SITE, BLOOD GAS ARTERIAL LINE; SOURCE, BLOOD GAS ARTERIAL; TEMPERATURE, FAHRENHEIT, BG 95.9 FAHREN (96.0-98.6)
[2022-10-12 08:55] LABS: ABG A-A DIFF O2 118.3 mmHg (10-20.0); O2 DEVICE,BLOOD GAS VENTILATOR (ROOM AIR); PEEP,BG 5 cm H2O; VENT MODE, BG A (ROOM AIR); VT, ABG 320 ml
[2022-10-12] MEDS ORDERED: DEXTROSE 50%-WATER 25 GM/50 ML SYRINGE IVP ONE ×2 (11:15→18:00)
[2022-10-12 12:00] VITALS: BP 111/64
[2022-10-12 12:26] LABS: GLUCOSE,POINT OF CARE 71 MG/DL (70-110)
[2022-10-12 13:06] LABS: QUANTIFERON, TB GOLD PLUS Indeterminate (Negative)
[2022-10-12 13:26] LABS: GLUCOSE,POINT OF CARE 145 MG/DL (70-110)
[2022-10-12] MEDS: METOCLOPRAMIDE HCL 5 MG/ML 2 ML VIAL IVP SCH ×2 (15:04→18:30)
[2022-10-12 16:00] VITALS: BP 136/88
[2022-10-12] MEDS ORDERED: VANCOMYCIN HCL 750 MG in DEXTROSE 5%-WATER 250 ML IV ONE (16:00)
[2022-10-12] MEDS: FentaNYL CIT 1000MCG/0.9% NACL 100 ML IV PRN (17:03)
[2022-10-12 17:46] LABS: GLUCOSE,POINT OF CARE 63 MG/DL (70-110)
[2022-10-12 20:00] VITALS: BP 131/76
[2022-10-12] MEDS: PEG 400/HYPROMELLOSE/GLYCERIN 15 ML OPHTHALMIC SOLUTION OU PRN (20:29)
[2022-10-12] MEDS: FLUCONAZOLE 400 MG/NACL ISOOSM 200 ML IV SCH (20:55)
[2022-10-13] VITALS: BP 125/71
[2022-10-13] MEDS: METOCLOPRAMIDE HCL 5 MG/ML 2 ML VIAL IVP SCH ×4 (00:02→17:13)
[2022-10-13] MEDS: HYDROCORTISONE SOD SUCC 100 MG/2 ML VIAL IVP SCH ×3 (00:04→16:06)
[2022-10-13 00:21] LABS: GLUCOSE,POINT OF CARE 123 MG/DL (70-110)
[2022-10-13] MEDS ORDERED: DEXTROSE 50%-WATER 25 GM/50 ML SYRINGE IVP ONE ×2 (00:30→04:30)
[2022-10-13] MEDS: CLINDAMYCIN 900 MG/D5% WATER 50 ML IV SCH ×2 (02:04→09:50)
[2022-10-13] MEDS: PANTOPRAZOLE SODIUM 80 MG in SODIUM CHLORIDE 0.9% 100 ML IV SCH (02:04)
[2022-10-13 02:11] LABS: GLUCOSE,POINT OF CARE 55 MG/DL (70-110)
[2022-10-13 04:00] VITALS: BP 132/73
[2022-10-13] MEDS: MEROPENEM 1 GM in SODIUM CHLORIDE 0.9% 100 ML IV SCH ×2 (04:24→14:17)
[2022-10-13] MEDS: DOXYCYCLINE HYCLATE 100 MG in DEXTROSE 5%-WATER 100 ML IV SCH ×2 (05:17→15:20)
[2022-10-13] MEDS: LevETIRAcetam 250 MG in DEXTROSE 5%-WATER 100 ML IV SCH ×2 (05:17→16:06)
[2022-10-13 05:41] LABS: BASOPHILS % (AUTO) 0.2 % (0.0-2.0); EOSINOPHILS % (AUTO) 0 % (1.0-6.0); HEMATOCRIT 26.4 % (36-46); HEMOGLOBIN 8.5 g/dL (12.0-16.0); LYMPHOCYTES # (AUTO) 0.2 K/uL (1.0-4.8); LYMPHOCYTES % (AUTO) 0.7 % (22.0-44.0); MEAN CORPUSCULAR HEMOGLOBIN 29.4 pg (26.0-34.0); MEAN CORPUSCULAR HGB CONC 32.2 G/dL (31.0-37.0); MEAN CORPUSCULAR VOLUME 92 fL (80-100); MONOCYTES # (AUTO) 0.1 K/uL (0.1-1.0); MONOCYTES % (AUTO) 0.5 % (2.0-9.0); NEUTROPHILS # (AUTO) 28.7 K/uL (1.8-7.7); RED BLOOD CELL COUNT(AUTO) 2.89 MIL/uL (4.00-5.20); RED CELL DISTRIBUTION WIDTH 19.5 % (11.5-14.5)
[2022-10-13 05:46] LABS: ALBUMIN 2.1 g/dL (3.4-5.0); BILIRUBIN,TOTAL 1.6 mg/dL (0.1-1.0); C-REACTIVE PROTEIN QUANT 14.82 mg/dL (0.00-0.30); CALCIUM, TOTAL 8.4 mg/dL (8.8-10.5); CREATININE 1.69 mg/dL (0.60-1.30); POTASSIUM 4.2 mmol/L (3.5-5.1); VANCOMYCIN,RANDOM 24.9 mcg/mL (25.0-50.0)
[2022-10-13 05:56] LABS: GLUCOSE,POINT OF CARE 44 MG/DL (70-110)
[2022-10-13 05:56] LABS: GLUCOSE,POINT OF CARE 318 MG/DL (70-110)
[2022-10-13 05:56] LABS: GLUCOSE,POINT OF CARE 149 MG/DL (70-110)
[2022-10-13 06:15] LABS: NEUTROPHILS % (AUTO) 98.6 % (40.0-70.0); PLATELET COUNT (AUTO) 14 K/uL (150-450)
[2022-10-13 06:16] LABS: PLATELET MORPHOLOGY COMMENT LARGE PLTS PRESENT
[2022-10-13] MEDS: POTASSIUM CHLORIDE IRRIG PRN ×2 (06:37→22:08)
[2022-10-13] MEDS: [UNRECOGNIZED DRUG - OTHER] IRRIG PRN ×2 (06:37→22:08)
[2022-10-13] MEDS: CALCIUM GLUCONATE IRRIG PRN ×2 (06:37→22:08)
[2022-10-13] MEDS: NXSTAGE RFP K0 IRRIG PRN ×2 (06:37→22:08)
[2022-10-13] MEDS ORDERED: BISACODYL 5 MG EC TABLET PO PRN (07:15)
[2022-10-13] MEDS: PRIMAQUINE PHOSPHATE 26.3 MG [15 MG BASE] TABLET PO SCH (07:59)
[2022-10-13] MEDS: OSELTAMIVIR PHOSPHATE 75 MG CAPSULE PO SCH (07:59)
[2022-10-13] MEDS: ETHYL ALCOHOL 62% ANTISEPTIC NASAL SANITIZER 0.6 ML AMPUL NASAL SCH ×2 (07:59→21:07)
[2022-10-13 08:00] VITALS: BP 118/60
[2022-10-13] MEDS: DOPamine 400MG/D5W[STANDARD] 250 ML IV PRN (08:08)
[2022-10-13] MEDS: DEXTROSE 50%-WATER 25 GM/50 ML SYRINGE IVP PRN ×2 (08:08→12:00)
[2022-10-13 08:10] LABS: GLUCOSE,POINT OF CARE 59 MG/DL (70-110)
[2022-10-13] MEDS: FOLIC ACID/VIT B COMPLEX AND C TABLET PO SCH (08:13)
[2022-10-13] MEDS: DOCUSATE SODIUM 100 MG/10 ML LIQUID UDCUP GT SCH ×2 (08:13→21:07)
[2022-10-13] MEDS ORDERED: DEXTROSE 5%-LACTATED RINGERS 1,000 ML IV SCH (08:15)
[2022-10-13 09:13] LABS: MAGNESIUM 1.8 mg/dL (1.80-2.40); PHOSPHORUS 2.8 mg/dL (2.5-4.9)
[2022-10-13 12:00] VITALS: BP 96/51
[2022-10-13] MEDS ORDERED: SODIUM CHLORIDE 0.9% 2,000 ML ONE (12:55)
[2022-10-13] MEDS: DEXTROSE 50% IV SCH (13:29)
[2022-10-13] MEDS: WATER IV SCH (13:29)
[2022-10-13] MEDS: RINGERS LACTATED IV SCH (13:29)
[2022-10-13 14:06] LABS: LEGIONELLA PNEUMO AG URINE Negative (Negative); S PNEUMO SOURCE Urine; STREP PNEUMONIAE AG URINE Positive (Negative)
[2022-10-13 16:00] VITALS: BP 112/59
[2022-10-13] MEDS ORDERED: BISACODYL 10 MG RECTAL RECTAL SUPPOSITORY PR PRN (16:15)
[2022-10-13 16:31] LABS: GLUCOSE,POINT OF CARE 85 MG/DL (70-110)
[2022-10-13 16:31] LABS: GLUCOSE,POINT OF CARE 35 MG/DL (70-110)
[2022-10-13 16:31] LABS: GLUCOSE,POINT OF CARE 116 MG/DL (70-110)
[2022-10-13 16:31] LABS: GLUCOSE,POINT OF CARE 125 MG/DL (70-110)
[2022-10-13 16:31] LABS: GLUCOSE,POINT OF CARE 96 MG/DL (70-110)
[2022-10-13] MEDS ORDERED: VANCOMYCIN HCL 500 MG in DEXTROSE 5%-WATER 100 ML IV ONE (17:00)
[2022-10-13 17:12] LABS: CREATININE 1.5 mg/dL (0.60-1.30); MAGNESIUM 1.8 mg/dL (1.80-2.40); POTASSIUM 4.3 mmol/L (3.5-5.1)
[2022-10-13] MEDS: FentaNYL CIT 1000MCG/0.9% NACL 100 ML IV PRN (17:29)
[2022-10-13 18:47] LABS: GLUCOSE,POINT OF CARE 103 MG/DL (70-110)
[2022-10-13] MEDS ORDERED: SODIUM PHOS,M-BASIC-D-BASIC 30 MMOL in DEXTROSE 5%-WATER 250 ML IV ONE (19:00)
[2022-10-13] MEDS: PEG 400/HYPROMELLOSE/GLYCERIN 15 ML OPHTHALMIC SOLUTION OU PRN (19:32)
[2022-10-13 20:00] VITALS: BP 146/98
[2022-10-13] MEDS ORDERED: SODIUM CHLORIDE 0.9% 500 ML IV ONE (23:52)
[2022-10-13] MEDS ORDERED: SODIUM CHLORIDE 0.9% 250 ML IV ONE (23:52)
[2022-10-14] VITALS (15 sets, daily range): BP systolic 111–164; BP diastolic 56–87
[2022-10-14] MEDS: HYDROCORTISONE SOD SUCC 100 MG/2 ML VIAL IVP SCH ×3 (00:23→15:49)
[2022-10-14] MEDS: METOCLOPRAMIDE HCL 5 MG/ML 2 ML VIAL IVP SCH ×4 (00:23→17:13)
[2022-10-14] MEDS: NXSTAGE RFP K0 IRRIG PRN ×3 (03:00→08:10)
[2022-10-14] MEDS: CALCIUM GLUCONATE IRRIG PRN ×3 (03:00→08:10)
[2022-10-14] MEDS: [UNRECOGNIZED DRUG - OTHER] IRRIG PRN ×3 (03:00→08:10)
[2022-10-14] MEDS: POTASSIUM CHLORIDE IRRIG PRN ×3 (03:00→08:10)
[2022-10-14] MEDS: MEROPENEM 1 GM in SODIUM CHLORIDE 0.9% 100 ML IV SCH (03:09)
[2022-10-14] MEDS: RINGERS LACTATED IV SCH ×2 (03:11→17:13)
[2022-10-14] MEDS: DEXTROSE 50% IV SCH ×2 (03:11→17:13)
[2022-10-14] MEDS: WATER IV SCH ×2 (03:11→17:13)
[2022-10-14] MEDS: DOXYCYCLINE HYCLATE 100 MG in DEXTROSE 5%-WATER 100 ML IV SCH ×2 (04:28→15:49)
[2022-10-14] MEDS: LevETIRAcetam 250 MG in DEXTROSE 5%-WATER 100 ML IV SCH ×2 (04:28→15:49)
[2022-10-14] MEDS: PEG 400/HYPROMELLOSE/GLYCERIN 15 ML OPHTHALMIC SOLUTION OU PRN (04:44)
[2022-10-14 05:50] LABS: BASOPHILS % (AUTO) 0.1 % (0.0-2.0); EOSINOPHILS % (AUTO) 0.4 % (1.0-6.0); HEMATOCRIT 23.4 % (36-46); HEMOGLOBIN 7.4 g/dL (12.0-16.0); LYMPHOCYTES # (AUTO) 0.2 K/uL (1.0-4.8); LYMPHOCYTES % (AUTO) 1.2 % (22.0-44.0); MEAN CORPUSCULAR HEMOGLOBIN 28.7 pg (26.0-34.0); MEAN CORPUSCULAR HGB CONC 31.6 G/dL (31.0-37.0); MEAN CORPUSCULAR VOLUME 91 fL (80-100); MONOCYTES # (AUTO) 0.3 K/uL (0.1-1.0); MONOCYTES % (AUTO) 1.8 % (2.0-9.0); NEUTROPHILS # (AUTO) 15.3 K/uL (1.8-7.7); RED BLOOD CELL COUNT(AUTO) 2.57 MIL/uL (4.00-5.20); RED CELL DISTRIBUTION WIDTH 19.4 % (11.5-14.5)
[2022-10-14 06:01] LABS: ALBUMIN 2.1 g/dL (3.4-5.0); BILIRUBIN,TOTAL 1.1 mg/dL (0.1-1.0); C-REACTIVE PROTEIN QUANT 7.19 mg/dL (0.00-0.30); CALCIUM, TOTAL 8.1 mg/dL (8.8-10.5); CREATININE 1.47 mg/dL (0.60-1.30); NEUTROPHILS % (AUTO) 96.5 % (40.0-70.0); POTASSIUM 3.8 mmol/L (3.5-5.1); TOTAL PROTEIN, SERUM 5.1 g/dL (6.4-8.2); VANCOMYCIN,RANDOM 23.2 mcg/mL (25.0-50.0)
[2022-10-14 06:02] LABS: PLATELET COUNT (AUTO) 8 K/uL (150-450)
[2022-10-14 06:11] LABS: GLUCOSE,POINT OF CARE 102 MG/DL (70-110)
[2022-10-14 06:11] LABS: GLUCOSE,POINT OF CARE 96 MG/DL (70-110)
[2022-10-14 06:11] LABS: GLUCOSE,POINT OF CARE 114 MG/DL (70-110)
[2022-10-14] MEDS: FentaNYL CIT 1000MCG/0.9% NACL 100 ML IV PRN ×2 (06:46→22:05)
[2022-10-14] MEDS: DOCUSATE SODIUM 100 MG/10 ML LIQUID UDCUP GT SCH ×2 (08:08→21:40)
[2022-10-14] MEDS: FOLIC ACID/VIT B COMPLEX AND C TABLET PO SCH (08:08)
[2022-10-14] MEDS: ETHYL ALCOHOL 62% ANTISEPTIC NASAL SANITIZER 0.6 ML AMPUL NASAL SCH ×2 (08:08→21:40)
[2022-10-14 10:01] LABS: GLUCOSE,POINT OF CARE 105 MG/DL (70-110)
[2022-10-14] MEDS ORDERED: SODIUM CHLORIDE 0.9% 500 ML IV ONE (12:55)
[2022-10-14] MEDS ORDERED: VANCOMYCIN HCL 500 MG in DEXTROSE 5%-WATER 100 ML IV ONE (13:00)
[2022-10-14] MEDS: AMPICILLIN SODIUM/SULBACTAM NA 3 GM in SODIUM CHLORIDE 0.9% 100 ML IV SCH ×2 (15:48→23:21)
[2022-10-14] MEDS ORDERED: HEPARIN SODIUM,PORCINE 1,000 UNITS/ML VIAL ONE (16:31)
[2022-10-14 19:30] LABS: GLUCOSE,POINT OF CARE 103 MG/DL (70-110)
[2022-10-14 19:30] LABS: GLUCOSE,POINT OF CARE 111 MG/DL (70-110)
[2022-10-14 20:46] LABS: GLUCOSE,POINT OF CARE 114 MG/DL (70-110)
[2022-10-15] VITALS (22 sets, daily range): BP systolic 141–192; BP diastolic 76–109
[2022-10-15] MEDS: HYDROCORTISONE SOD SUCC 100 MG/2 ML VIAL IVP SCH ×4 (00:12→23:27)
[2022-10-15] MEDS: METOCLOPRAMIDE HCL 5 MG/ML 2 ML VIAL IVP SCH ×5 (00:13→23:27)
[2022-10-15 02:31] LABS: GLUCOSE,POINT OF CARE 123 MG/DL (70-110)
[2022-10-15 03:06] LABS: GLU 6-PHOSPATE DEHYDRO-RBC 2.82 x10E6/uL (3.77-5.28)
[2022-10-15] MEDS: DOXYCYCLINE HYCLATE 100 MG in DEXTROSE 5%-WATER 100 ML IV SCH ×2 (03:47→16:24)
[2022-10-15] MEDS: LevETIRAcetam 250 MG in DEXTROSE 5%-WATER 100 ML IV SCH ×2 (03:47→15:06)
[2022-10-15] MEDS: FentaNYL CIT 1000MCG/0.9% NACL 100 ML IV PRN ×2 (04:27→11:53)
[2022-10-15] MEDS: PROPOFOL 1000 MG/ISO-OSM 100 ML IV PRN ×2 (06:16→13:54)
[2022-10-15 06:37] LABS: ALBUMIN 2.1 g/dL (3.4-5.0); BASOPHILS % (AUTO) 0.2 % (0.0-2.0); BILIRUBIN,TOTAL 0.9 mg/dL (0.1-1.0); C-REACTIVE PROTEIN QUANT 2.71 mg/dL (0.00-0.30); CALCIUM, TOTAL 7.9 mg/dL (8.8-10.5); CREATININE 2.34 mg/dL (0.60-1.30); EOSINOPHILS % (AUTO) 0 % (1.0-6.0); HEMATOCRIT 21.3 % (36-46); LYMPHOCYTES # (AUTO) 0.1 K/uL (1.0-4.8); LYMPHOCYTES % (AUTO) 1.4 % (22.0-44.0); MEAN CORPUSCULAR HEMOGLOBIN 29.7 pg (26.0-34.0); MEAN CORPUSCULAR HGB CONC 32.6 G/dL (31.0-37.0); MEAN CORPUSCULAR VOLUME 91 fL (80-100); MONOCYTES # (AUTO) 0.5 K/uL (0.1-1.0); MONOCYTES % (AUTO) 4.9 % (2.0-9.0); NEUTROPHILS # (AUTO) 9.3 K/uL (1.8-7.7); POTASSIUM 3.6 mmol/L (3.5-5.1); RED BLOOD CELL COUNT(AUTO) 2.33 MIL/uL (4.00-5.20); RED CELL DISTRIBUTION WIDTH 18.9 % (11.5-14.5); TOTAL PROTEIN, SERUM 4.9 g/dL (6.4-8.2)
[2022-10-15 07:27] LABS: HEMOGLOBIN 6.9 g/dL (12.0-16.0)
[2022-10-15 07:28] LABS: NEUTROPHILS % (AUTO) 93.5 % (40.0-70.0); PLATELET COUNT (AUTO) 11 K/uL (150-450)
[2022-10-15 07:29] LABS: PLATELET MORPHOLOGY COMMENT LARGE PLTS PRESENT
[2022-10-15] MEDS: AMPICILLIN SODIUM/SULBACTAM NA 3 GM in SODIUM CHLORIDE 0.9% 100 ML IV SCH ×2 (07:42→22:28)
[2022-10-15] MEDS: WATER IV SCH (07:43)
[2022-10-15] MEDS: DEXTROSE 50% IV SCH (07:43)
[2022-10-15] MEDS: RINGERS LACTATED IV SCH (07:43)
[2022-10-15] MEDS ORDERED: SODIUM CHLORIDE 0.9% 250 ML IV ONE ×2 (07:49→10:58)
[2022-10-15] MEDS: DOCUSATE SODIUM 100 MG/10 ML LIQUID UDCUP GT SCH ×2 (08:05→22:39)
[2022-10-15] MEDS: FOLIC ACID/VIT B COMPLEX AND C TABLET PO SCH (08:05)
[2022-10-15] MEDS: ETHYL ALCOHOL 62% ANTISEPTIC NASAL SANITIZER 0.6 ML AMPUL NASAL SCH ×2 (08:05→22:39)
[2022-10-15] MEDS: EPOETIN ALFA 10,000 UNITS/ML VIAL SQ SCH (08:05)
[2022-10-15] MEDS: DEXMEDETOMIDINE HCL 400 MCG in SODIUM CHLORIDE 0.9% 96 ML IV PRN (09:56)
[2022-10-15] MEDS: CARVEDILOL 3.125 MG TABLET PO SCH ×2 (10:31→22:39)
[2022-10-15] MEDS ORDERED: WATER IV SCH (11:00)
[2022-10-15] MEDS ORDERED: DEXTROSE 50% IV SCH (11:00)
[2022-10-15] MEDS ORDERED: RINGERS LACTATED IV SCH (11:00)
[2022-10-15 14:26] LABS: GLUCOSE,POINT OF CARE 140 MG/DL (70-110)
[2022-10-15 16:11] LABS: GLUCOSE,POINT OF CARE 128 MG/DL (70-110)
[2022-10-15 16:11] LABS: GLUCOSE,POINT OF CARE 127 MG/DL (70-110)
[2022-10-15] MEDS ORDERED: SODIUM CHLORIDE 0.9% 1,000 ML ONE (17:56)
[2022-10-16] VITALS: BP 123/45
[2022-10-16 00:56] LABS: GLUCOSE,POINT OF CARE 146 MG/DL (70-110)
[2022-10-16] MEDS: RINGERS LACTATED IV SCH ×5 (01:23→21:24)
[2022-10-16] MEDS: DEXTROSE 50% IV SCH (01:23)
[2022-10-16] MEDS: WATER IV SCH (01:23)
[2022-10-16] MEDS: [UNRECOGNIZED DRUG - OTHER] IV SCH ×4 (01:48→21:24)
[2022-10-16] MEDS: DEXTROSE IV SCH ×4 (01:48→21:24)
[2022-10-16 02:01] LABS: GLUCOSE,POINT OF CARE 115 MG/DL (70-110)
[2022-10-16] MEDS: FentaNYL CIT 1000MCG/0.9% NACL 100 ML IV PRN ×3 (03:11→18:51)
[2022-10-16] MEDS: DOPamine 400MG/D5W[STANDARD] 250 ML IV PRN (03:12)
[2022-10-16 04:31] LABS: GLUCOSE,POINT OF CARE 116 MG/DL (70-110)
[2022-10-16] MEDS: LevETIRAcetam 250 MG in DEXTROSE 5%-WATER 100 ML IV SCH ×2 (04:48→15:04)
[2022-10-16] MEDS: DOXYCYCLINE HYCLATE 100 MG in DEXTROSE 5%-WATER 100 ML IV SCH (04:49)
[2022-10-16 05:00] VITALS: BP 149/83
[2022-10-16 05:28] LABS: BASOPHILS % (AUTO) 0.1 % (0.0-2.0); EOSINOPHILS % (AUTO) 0 % (1.0-6.0); HEMATOCRIT 24.6 % (36-46); HEMOGLOBIN 8.3 g/dL (12.0-16.0); LYMPHOCYTES # (AUTO) 0.2 K/uL (1.0-4.8); LYMPHOCYTES % (AUTO) 2.5 % (22.0-44.0); MEAN CORPUSCULAR HEMOGLOBIN 30.1 pg (26.0-34.0); MEAN CORPUSCULAR HGB CONC 33.8 G/dL (31.0-37.0); MEAN CORPUSCULAR VOLUME 89 fL (80-100); MONOCYTES # (AUTO) 0.5 K/uL (0.1-1.0); MONOCYTES % (AUTO) 6.6 % (2.0-9.0); NEUTROPHILS # (AUTO) 7.2 K/uL (1.8-7.7); RED BLOOD CELL COUNT(AUTO) 2.76 MIL/uL (4.00-5.20); RED CELL DISTRIBUTION WIDTH 16.5 % (11.5-14.5)
[2022-10-16 05:41] LABS: NEUTROPHILS % (AUTO) 90.8 % (40.0-70.0)
[2022-10-16 05:42] LABS: PLATELET COUNT (AUTO) 10 K/uL (150-450)
[2022-10-16 05:44] LABS: ALBUMIN 1.9 g/dL (3.4-5.0); BILIRUBIN,TOTAL 0.9 mg/dL (0.1-1.0); C-REACTIVE PROTEIN QUANT 1.43 mg/dL (0.00-0.30); CALCIUM, TOTAL 7.9 mg/dL (8.8-10.5); CREATININE 1.51 mg/dL (0.60-1.30); POTASSIUM 3.2 mmol/L (3.5-5.1); TOTAL PROTEIN, SERUM 4.7 g/dL (6.4-8.2)
[2022-10-16 06:04] LABS: PLATELET MORPHOLOGY COMMENT LARGE PLTS PRESENT
[2022-10-16] MEDS: METOCLOPRAMIDE HCL 5 MG/ML 2 ML VIAL IVP SCH ×4 (06:41→23:45)
[2022-10-16 08:00] VITALS: BP 148/83
[2022-10-16] MEDS: FOLIC ACID/VIT B COMPLEX AND C TABLET PO SCH (08:26)
[2022-10-16] MEDS: ETHYL ALCOHOL 62% ANTISEPTIC NASAL SANITIZER 0.6 ML AMPUL NASAL SCH ×2 (08:27→21:04)
[2022-10-16] MEDS: DOCUSATE SODIUM 100 MG/10 ML LIQUID UDCUP GT SCH ×2 (08:27→21:00)
[2022-10-16] MEDS: HYDROCORTISONE SOD SUCC 100 MG/2 ML VIAL IVP SCH ×3 (08:27→23:46)
[2022-10-16] MEDS: CARVEDILOL 3.125 MG TABLET PO SCH ×2 (08:28→21:00)
[2022-10-16] MEDS: AMPICILLIN SODIUM/SULBACTAM NA 3 GM in SODIUM CHLORIDE 0.9% 100 ML IV SCH ×2 (08:28→20:58)
[2022-10-16] MEDS ORDERED: POTASSIUM CHLORIDE 8 MEQ ER TABLET PO ONE (09:00)
[2022-10-16] MEDS: AmLODIPine BESYLATE 5 MG TABLET PO SCH (09:24)
[2022-10-16] MEDS ORDERED: POTASSIUM CHLORIDE 10% 40 MEQ/30 ML LIQUID UDCUP PO ONE (10:30)
[2022-10-16 11:16] LABS: GLUCOSE,POINT OF CARE 114 MG/DL (70-110)
[2022-10-16 12:00] VITALS: BP 153/93
[2022-10-16] MEDS ORDERED: HEPARIN SODIUM,PORCINE 1,000 UNITS/ML VIAL IVP ONE (14:36)
[2022-10-16] MEDS: DEXMEDETOMIDINE HCL 400 MCG in SODIUM CHLORIDE 0.9% 96 ML IV PRN (15:05)
[2022-10-16] MEDS: LISINOPRIL 5 MG TABLET PO SCH (15:41)
[2022-10-16 16:00] VITALS: BP 203/122
[2022-10-16 16:06] LABS: GLUCOSE,POINT OF CARE 118 MG/DL (70-110)
[2022-10-16 19:51] LABS: GLUCOSE,POINT OF CARE 128 MG/DL (70-110)
[2022-10-16 20:00] VITALS: BP 142/81
[2022-10-16 21:32] LABS: GLUCOSE,POINT OF CARE 120 MG/DL (70-110)
[2022-10-17] VITALS: BP_SYST 121; BP_SYST 140; BP_DIAS 49; BP_DIAS 86
[2022-10-17] MEDS: FentaNYL CIT 1000MCG/0.9% NACL 100 ML IV PRN ×3 (02:04→20:37)
[2022-10-17] MEDS: LevETIRAcetam 250 MG in DEXTROSE 5%-WATER 100 ML IV SCH ×2 (03:46→15:56)
[2022-10-17] MEDS ORDERED: SODIUM CHLORIDE 0.9% 250 ML IV ONE (03:47)
[2022-10-17 04:00] VITALS: BP 150/88
[2022-10-17 04:51] LABS: GLUCOSE,POINT OF CARE 102 MG/DL (70-110)
[2022-10-17 05:47] LABS: BASOPHILS % (AUTO) 0.1 % (0.0-2.0); EOSINOPHILS % (AUTO) 0.1 % (1.0-6.0); HEMATOCRIT 30.2 % (36-46); HEMOGLOBIN 9.9 g/dL (12.0-16.0); LYMPHOCYTES # (AUTO) 0.4 K/uL (1.0-4.8); LYMPHOCYTES % (AUTO) 2.4 % (22.0-44.0); MEAN CORPUSCULAR HEMOGLOBIN 29.3 pg (26.0-34.0); MEAN CORPUSCULAR HGB CONC 32.7 G/dL (31.0-37.0); MEAN CORPUSCULAR VOLUME 90 fL (80-100); MONOCYTES # (AUTO) 1.4 K/uL (0.1-1.0); MONOCYTES % (AUTO) 9.7 % (2.0-9.0); NEUTROPHILS # (AUTO) 13.1 K/uL (1.8-7.7); RED BLOOD CELL COUNT(AUTO) 3.37 MIL/uL (4.00-5.20); RETICULOCYTE % (AUTO) 1.1 % (0.5-2.3)
[2022-10-17 05:54] LABS: BILIRUBIN,DIRECT 0.3 mg/dL (0.00-0.20); BILIRUBIN,TOTAL 0.7 mg/dL (0.1-1.0); CALCIUM, TOTAL 8.2 mg/dL (8.8-10.5); CREATININE 2.44 mg/dL (0.60-1.30); MAGNESIUM 1.7 mg/dL (1.80-2.40); PHOSPHORUS 2.4 mg/dL (2.5-4.9); POTASSIUM 4.1 mmol/L (3.5-5.1)
[2022-10-17] MEDS: PROPOFOL 1000 MG/ISO-OSM 100 ML IV PRN (06:04)
[2022-10-17 06:20] LABS: NEUTROPHILS % (AUTO) 87.7 % (40.0-70.0); PLATELET COUNT (AUTO) 16 K/uL (150-450)
[2022-10-17] MEDS: METOCLOPRAMIDE HCL 5 MG/ML 2 ML VIAL IVP SCH ×3 (06:20→17:27)
[2022-10-17 06:23] LABS: PLATELET MORPHOLOGY COMMENT LARGE PLTS PRESENT
[2022-10-17 08:00] VITALS: BP 164/92
[2022-10-17] MEDS: HYDROCORTISONE SOD SUCC 100 MG/2 ML VIAL IVP SCH (08:03)
[2022-10-17] MEDS: FOLIC ACID/VIT B COMPLEX AND C TABLET PO SCH (08:03)
[2022-10-17] MEDS: LISINOPRIL 5 MG TABLET PO SCH (08:03)
[2022-10-17] MEDS: AMPICILLIN SODIUM/SULBACTAM NA 3 GM in SODIUM CHLORIDE 0.9% 100 ML IV SCH ×2 (08:05→20:37)
[2022-10-17] MEDS: DOCUSATE SODIUM 100 MG/10 ML LIQUID UDCUP GT SCH ×2 (08:05→20:38)
[2022-10-17] MEDS: ETHYL ALCOHOL 62% ANTISEPTIC NASAL SANITIZER 0.6 ML AMPUL NASAL SCH ×2 (08:06→20:37)
[2022-10-17] MEDS: AmLODIPine BESYLATE 5 MG TABLET PO SCH (08:06)
[2022-10-17 08:10] LABS: GLUCOSE,POINT OF CARE 107 MG/DL (70-110)
[2022-10-17] MEDS: AMINO ACIDS/PROTEIN HYDROLYS 30 ML TUBE PO SCH (08:10)
[2022-10-17 12:00] VITALS: BP 173/98
[2022-10-17] MEDS ORDERED: SODIUM CHLORIDE 0.9% 500 ML IV ONE (14:08)
[2022-10-17] MEDS: DEXMEDETOMIDINE HCL 400 MCG in SODIUM CHLORIDE 0.9% 96 ML IV PRN (15:33)
[2022-10-17 16:00] VITALS: BP 167/101
[2022-10-17 16:26] LABS: GLUCOSE,POINT OF CARE 114 MG/DL (70-110)
[2022-10-17] MEDS: RINGERS LACTATED IV SCH ×2 (17:25)
[2022-10-17] MEDS: DEXTROSE IV SCH ×2 (17:25)
[2022-10-17] MEDS: [UNRECOGNIZED DRUG - OTHER] IV SCH ×2 (17:25)
[2022-10-17 18:17] LABS: GLUCOSE,POINT OF CARE 93 MG/DL (70-110)
[2022-10-17 18:17] LABS: GLUCOSE,POINT OF CARE 131 MG/DL (70-110)
[2022-10-17 20:00] VITALS: BP 132/68
[2022-10-17 20:06] LABS: GLUCOSE,POINT OF CARE 88 MG/DL (70-110)
[2022-10-17] MEDS: SIMETHICONE 80 MG CHEWABLE TABLET CHEW SCH (20:37)
[2022-10-18] VITALS (15 sets, daily range): BP systolic 122–188; BP diastolic 54–97
[2022-10-18] MEDS ORDERED: SODIUM CHLORIDE 0.9% 250 ML IV ONE (03:00)
[2022-10-18] MEDS: LevETIRAcetam 250 MG in DEXTROSE 5%-WATER 100 ML IV SCH ×2 (03:30→16:25)
[2022-10-18 03:50] LABS: GLUCOSE,POINT OF CARE 83 MG/DL (70-110)
[2022-10-18 05:28] LABS: BASOPHILS % (AUTO) 0.1 % (0.0-2.0); EOSINOPHILS % (AUTO) 0.7 % (1.0-6.0); HEMATOCRIT 28.7 % (36-46); HEMOGLOBIN 9.4 g/dL (12.0-16.0); LYMPHOCYTES # (AUTO) 0.6 K/uL (1.0-4.8); LYMPHOCYTES % (AUTO) 5.4 % (22.0-44.0); MEAN CORPUSCULAR HEMOGLOBIN 29.6 pg (26.0-34.0); MEAN CORPUSCULAR HGB CONC 32.9 G/dL (31.0-37.0); MEAN CORPUSCULAR VOLUME 90 fL (80-100); MONOCYTES # (AUTO) 0.8 K/uL (0.1-1.0); MONOCYTES % (AUTO) 7.4 % (2.0-9.0); NEUTROPHILS # (AUTO) 9.7 K/uL (1.8-7.7); PLATELET COUNT (AUTO) 27 K/uL (150-450); RED BLOOD CELL COUNT(AUTO) 3.19 MIL/uL (4.00-5.20); RED CELL DISTRIBUTION WIDTH 16.8 % (11.5-14.5)
[2022-10-18 05:41] LABS: C-REACTIVE PROTEIN QUANT 2.03 mg/dL (0.00-0.30); CALCIUM, TOTAL 8.2 mg/dL (8.8-10.5); CREATININE 3.08 mg/dL (0.60-1.30); MAGNESIUM 1.5 mg/dL (1.80-2.40); PHOSPHORUS 3.5 mg/dL (2.5-4.9); POTASSIUM 3.7 mmol/L (3.5-5.1)
[2022-10-18 05:42] LABS: NEUTROPHILS % (AUTO) 86.4 % (40.0-70.0)
[2022-10-18] MEDS: DEXMEDETOMIDINE HCL 400 MCG in SODIUM CHLORIDE 0.9% 96 ML IV PRN ×2 (05:47→22:28)
[2022-10-18] MEDS: METOCLOPRAMIDE HCL 5 MG/ML 2 ML VIAL IVP SCH ×5 (05:48→23:42)
[2022-10-18 05:58] LABS: PLATELET MORPHOLOGY COMMENT LARGE PLTS PRESENT
[2022-10-18 06:26] LABS: GLUCOSE,POINT OF CARE 105 MG/DL (70-110)
[2022-10-18] MEDS: LISINOPRIL 5 MG TABLET PO SCH (08:27)
[2022-10-18] MEDS: AMPICILLIN SODIUM/SULBACTAM NA 3 GM in SODIUM CHLORIDE 0.9% 100 ML IV SCH ×2 (08:27→20:34)
[2022-10-18] MEDS: AMINO ACIDS/PROTEIN HYDROLYS 30 ML TUBE PO SCH (08:27)
[2022-10-18] MEDS: AmLODIPine BESYLATE 10 MG TABLET PO SCH (08:28)
[2022-10-18] MEDS: FOLIC ACID/VIT B COMPLEX AND C TABLET PO SCH (08:28)
[2022-10-18] MEDS: DOCUSATE SODIUM 100 MG/10 ML LIQUID UDCUP GT SCH ×2 (08:28→21:00)
[2022-10-18] MEDS: SIMETHICONE 80 MG CHEWABLE TABLET CHEW SCH ×2 (08:28→20:34)
[2022-10-18] MEDS: HYDROCORTISONE SOD SUCC 100 MG/2 ML VIAL IVP SCH (08:28)
[2022-10-18] MEDS: ETHYL ALCOHOL 62% ANTISEPTIC NASAL SANITIZER 0.6 ML AMPUL NASAL SCH ×2 (08:28→21:28)
[2022-10-18] MEDS: EPOETIN ALFA 10,000 UNITS/ML VIAL SQ SCH (08:30)
[2022-10-18] MEDS: DEXTROSE 50%-WATER 25 GM/50 ML SYRINGE IVP PRN (08:55)
[2022-10-18] MEDS ORDERED: SODIUM CHLORIDE 0.9% 2,000 ML ONE (10:42)
[2022-10-18] MEDS ORDERED: SODIUM CHLORIDE 0.9% 500 ML IV ONE (11:19)
[2022-10-18] MEDS: [UNRECOGNIZED DRUG - OTHER] IV SCH ×2 (13:11)
[2022-10-18] MEDS: RINGERS LACTATED IV SCH ×2 (13:11)
[2022-10-18] MEDS: DEXTROSE IV SCH ×2 (13:11)
[2022-10-18] MEDS: PROPOFOL 1000 MG/ISO-OSM 100 ML IV PRN (17:58)
[2022-10-18] MEDS: FentaNYL CIT 1000MCG/0.9% NACL 100 ML IV PRN (17:59)
[2022-10-18 18:10] LABS: GLUCOSE,POINT OF CARE 124 MG/DL (70-110)
[2022-10-18 18:10] LABS: GLUCOSE,POINT OF CARE 42 MG/DL (70-110)
[2022-10-18 18:10] LABS: GLUCOSE,POINT OF CARE 111 MG/DL (70-110)
[2022-10-19] VITALS (14 sets, daily range): BP systolic 124–193; BP diastolic 51–96
[2022-10-19 00:01] LABS: GLUCOSE,POINT OF CARE 99 MG/DL (70-110)
[2022-10-19] MEDS: RINGERS LACTATED IV SCH ×4 (02:20→20:15)
[2022-10-19] MEDS: DEXTROSE IV SCH ×4 (02:20→20:15)
[2022-10-19] MEDS: [UNRECOGNIZED DRUG - OTHER] IV SCH ×4 (02:20→20:15)
[2022-10-19] MEDS: LevETIRAcetam 250 MG in DEXTROSE 5%-WATER 100 ML IV SCH ×2 (04:10→16:13)
[2022-10-19 04:26] LABS: GLUCOSE,POINT OF CARE 82 MG/DL (70-110)
[2022-10-19 05:17] LABS: BASOPHILS % (AUTO) 0.3 % (0.0-2.0); EOSINOPHILS % (AUTO) 0.4 % (1.0-6.0); HEMATOCRIT 26.9 % (36-46); HEMOGLOBIN 8.8 g/dL (12.0-16.0); LYMPHOCYTES # (AUTO) 0.4 K/uL (1.0-4.8); LYMPHOCYTES % (AUTO) 3.5 % (22.0-44.0); MEAN CORPUSCULAR HEMOGLOBIN 29.5 pg (26.0-34.0); MEAN CORPUSCULAR HGB CONC 32.6 G/dL (31.0-37.0); MEAN CORPUSCULAR VOLUME 91 fL (80-100); MONOCYTES # (AUTO) 0.8 K/uL (0.1-1.0); MONOCYTES % (AUTO) 6.7 % (2.0-9.0); NEUTROPHILS # (AUTO) 10.6 K/uL (1.8-7.7); PLATELET COUNT (AUTO) 50 K/uL (150-450); RED BLOOD CELL COUNT(AUTO) 2.96 MIL/uL (4.00-5.20)
[2022-10-19 05:29] LABS: CALCIUM, TOTAL 8.4 mg/dL (8.8-10.5); CREATININE 1.71 mg/dL (0.60-1.30); MAGNESIUM 1.6 mg/dL (1.80-2.40); PHOSPHORUS 2.2 mg/dL (2.5-4.9); POTASSIUM 3.3 mmol/L (3.5-5.1)
[2022-10-19 05:48] LABS: NEUTROPHILS % (AUTO) 89.1 % (40.0-70.0)
[2022-10-19 06:00] LABS: PLATELET MORPHOLOGY COMMENT LARGE PLTS PRESENT
[2022-10-19] MEDS: METOCLOPRAMIDE HCL 5 MG/ML 2 ML VIAL IVP SCH ×3 (06:00→18:03)
[2022-10-19 06:01] LABS: GLUCOSE,POINT OF CARE 94 MG/DL (70-110)
[2022-10-19] MEDS: AMPICILLIN SODIUM/SULBACTAM NA 3 GM in SODIUM CHLORIDE 0.9% 100 ML IV SCH ×2 (08:59→20:14)
[2022-10-19] MEDS: AMINO ACIDS/PROTEIN HYDROLYS 30 ML TUBE PO SCH (08:59)
[2022-10-19] MEDS: DOCUSATE SODIUM 100 MG/10 ML LIQUID UDCUP GT SCH ×2 (09:00→20:15)
[2022-10-19] MEDS: SIMETHICONE 80 MG CHEWABLE TABLET CHEW SCH (09:22)
[2022-10-19] MEDS: FOLIC ACID/VIT B COMPLEX AND C TABLET PO SCH (09:22)
[2022-10-19] MEDS: ETHYL ALCOHOL 62% ANTISEPTIC NASAL SANITIZER 0.6 ML AMPUL NASAL SCH ×2 (09:23→20:15)
[2022-10-19] MEDS: HYDROCORTISONE SOD SUCC 100 MG/2 ML VIAL IVP SCH (09:25)
[2022-10-19] MEDS: AmLODIPine BESYLATE 10 MG TABLET PO SCH (09:25)
[2022-10-19] MEDS: LISINOPRIL 5 MG TABLET PO SCH (09:25)
[2022-10-19] MEDS: FentaNYL CIT 1000MCG/0.9% NACL 100 ML IV PRN ×2 (11:34→20:14)
[2022-10-19] MEDS ORDERED: HEPARIN SODIUM,PORCINE 1,000 UNITS/ML VIAL IVP ONE ×2 (16:09→16:10)
[2022-10-19 17:26] LABS: GLUCOSE,POINT OF CARE 106 MG/DL (70-110)
[2022-10-19] MEDS: DEXMEDETOMIDINE HCL 400 MCG in SODIUM CHLORIDE 0.9% 96 ML IV PRN (18:08)
[2022-10-19 18:31] LABS: GLUCOSE,POINT OF CARE 96 MG/DL (70-110)
[2022-10-19 18:31] LABS: GLUCOSE,POINT OF CARE 99 MG/DL (70-110)
[2022-10-19] MEDS: BALSAM PERU/CASTOR OIL 60 GM OINTMENT TP SCH (20:14)
[2022-10-20] VITALS (14 sets, daily range): BP systolic 151–190; BP diastolic 63–102
[2022-10-20] MEDS: LevETIRAcetam 250 MG in DEXTROSE 5%-WATER 100 ML IV SCH ×2 (03:28→16:47)
[2022-10-20 04:31] LABS: GLUCOSE,POINT OF CARE 96 MG/DL (70-110)
[2022-10-20] MEDS ORDERED: SODIUM CHLORIDE 0.9% 2,000 ML ONE ×2 (05:29→07:38)
[2022-10-20] MEDS: METOCLOPRAMIDE HCL 5 MG/ML 2 ML VIAL IVP SCH ×3 (06:00→20:28)
[2022-10-20 06:04] LABS: BASOPHILS % (AUTO) 0.1 % (0.0-2.0); EOSINOPHILS % (AUTO) 0.6 % (1.0-6.0); HEMATOCRIT 24.7 % (36-46); HEMOGLOBIN 8.1 g/dL (12.0-16.0); LYMPHOCYTES # (AUTO) 0.3 K/uL (1.0-4.8); LYMPHOCYTES % (AUTO) 2.6 % (22.0-44.0); MEAN CORPUSCULAR HEMOGLOBIN 29.9 pg (26.0-34.0); MEAN CORPUSCULAR HGB CONC 32.9 G/dL (31.0-37.0); MEAN CORPUSCULAR VOLUME 91 fL (80-100); MONOCYTES # (AUTO) 0.9 K/uL (0.1-1.0); MONOCYTES % (AUTO) 8.7 % (2.0-9.0); NEUTROPHILS # (AUTO) 9.5 K/uL (1.8-7.7); PLATELET COUNT (AUTO) 72 K/uL (150-450); RED BLOOD CELL COUNT(AUTO) 2.71 MIL/uL (4.00-5.20); RED CELL DISTRIBUTION WIDTH 16.8 % (11.5-14.5)
[2022-10-20 06:21] LABS: ALBUMIN 1.5 g/dL (3.4-5.0); BILIRUBIN,TOTAL 0.5 mg/dL (0.1-1.0); C-REACTIVE PROTEIN QUANT 4.99 mg/dL (0.00-0.30); CALCIUM, TOTAL 8.2 mg/dL (8.8-10.5); CREATININE 1.81 mg/dL (0.60-1.30); POTASSIUM 3.1 mmol/L (3.5-5.1); TOTAL PROTEIN, SERUM 4.5 g/dL (6.4-8.2)
[2022-10-20] MEDS ORDERED: HEPARIN SODIUM,PORCINE 1,000 UNITS/ML VIAL IVCATH ONE ×2 (08:15)
[2022-10-20] MEDS: DOCUSATE SODIUM 100 MG/10 ML LIQUID UDCUP GT SCH ×2 (09:00→20:29)
[2022-10-20] MEDS: AMPICILLIN SODIUM/SULBACTAM NA 3 GM in SODIUM CHLORIDE 0.9% 100 ML IV SCH ×2 (09:14→20:27)
[2022-10-20] MEDS: AMINO ACIDS/PROTEIN HYDROLYS 30 ML TUBE PO SCH (09:14)
[2022-10-20] MEDS: ETHYL ALCOHOL 62% ANTISEPTIC NASAL SANITIZER 0.6 ML AMPUL NASAL SCH ×2 (09:15→20:28)
[2022-10-20] MEDS: RINGERS LACTATED IV SCH ×2 (09:15)
[2022-10-20] MEDS: DEXTROSE IV SCH ×2 (09:15)
[2022-10-20] MEDS: [UNRECOGNIZED DRUG - OTHER] IV SCH ×2 (09:15)
[2022-10-20] MEDS: HYDROCORTISONE SOD SUCC 100 MG/2 ML VIAL IVP SCH (09:18)
[2022-10-20] MEDS: AmLODIPine BESYLATE 10 MG TABLET PO SCH (09:18)
[2022-10-20] MEDS: FOLIC ACID/VIT B COMPLEX AND C TABLET PO SCH (09:18)
[2022-10-20] MEDS: LISINOPRIL 5 MG TABLET PO SCH (09:18)
[2022-10-20] MEDS: EPOETIN ALFA 10,000 UNITS/ML VIAL SQ SCH (09:19)
[2022-10-20] MEDS: BALSAM PERU/CASTOR OIL 60 GM OINTMENT TP SCH ×2 (09:19→20:29)
[2022-10-20 11:05] LABS: GLUCOSE,POINT OF CARE 101 MG/DL (70-110)
[2022-10-20 13:11] LABS: GLUCOSE,POINT OF CARE 91 MG/DL (70-110)
[2022-10-20] MEDS: LABETALOL HCL 100 MG TABLET PO SCH ×2 (15:43→20:28)
[2022-10-20 16:01] LABS: ABG BASE EXCESS 7.2 mmol/L (-2.0-3.0); ABG CARBOXYHEMOGLOBIN 0.8 % (0.0-3.0); ABG HCO3 30.7 mmol/L (22.0-26.0); ABG METHEMOGLOBIN 0.1 % (0.0-1.5); ABG OXYGEN CONTENT 13.3 mL/dL (15.0-23.0); ABG OXYHEMOGLOBIN 98.1 % (94.0-100.0); ABG PCO2 39 mmHg (35-45); ABG PH 7.507 (7.350-7.450); ABG TOTAL HEMOGLOBIN 9.4 G/dL (12.0-18.0); PO2, ARTERIAL BG 141.8 mmHg (80.0-100.0); SOURCE, BLOOD GAS ARTERIAL; TEMPERATURE, FAHRENHEIT, BG 99.6 FAHREN (96.0-98.6)
[2022-10-20 16:04] LABS: ABG A-A DIFF O2 61.7 mmHg (10-20.0); O2 DEVICE,BLOOD GAS VENTILATOR (ROOM AIR); SITE, BLOOD GAS ARTERIAL LINE; VENT MODE, BG Press. Support Vent. (ROOM AIR)
[2022-10-20 16:05] LABS: PEEP,BG 5 cm H2O; PRESSURE SUPPORT, BG 8 cm H2O; SPONTANEOUS VT, BG 338 ml
[2022-10-20] MEDS: FentaNYL CIT 1000MCG/0.9% NACL 100 ML IV PRN (17:37)
[2022-10-20] MEDS: DEXMEDETOMIDINE HCL 400 MCG in SODIUM CHLORIDE 0.9% 96 ML IV PRN (17:39)
[2022-10-20 19:25] LABS: GLUCOSE,POINT OF CARE 132 MG/DL (70-110)
[2022-10-21] VITALS: BP 137/59
[2022-10-21 04:00] VITALS: BP 145/68
[2022-10-21] MEDS: LevETIRAcetam 250 MG in DEXTROSE 5%-WATER 100 ML IV SCH ×2 (04:11→16:28)
[2022-10-21 05:06] LABS: GLUCOSE,POINT OF CARE 91 MG/DL (70-110)
[2022-10-21] MEDS ORDERED: SODIUM CHLORIDE 0.9% 250 ML IV ONE ×2 (05:42→13:15)
[2022-10-21 06:00] LABS: BASOPHILS % (AUTO) 0.4 % (0.0-2.0); EOSINOPHILS % (AUTO) 0.5 % (1.0-6.0); HEMATOCRIT 24.5 % (36-46); LYMPHOCYTES # (AUTO) 0.4 K/uL (1.0-4.8); MEAN CORPUSCULAR HEMOGLOBIN 29.8 pg (26.0-34.0); MEAN CORPUSCULAR HGB CONC 32.8 G/dL (31.0-37.0); MEAN CORPUSCULAR VOLUME 91 fL (80-100); MONOCYTES # (AUTO) 0.8 K/uL (0.1-1.0); MONOCYTES % (AUTO) 10.4 % (2.0-9.0); NEUTROPHILS # (AUTO) 6.4 K/uL (1.8-7.7); NEUTROPHILS % (AUTO) 83.7 % (40.0-70.0); PLATELET COUNT (AUTO) 102 K/uL (150-450); RED CELL DISTRIBUTION WIDTH 17.3 % (11.5-14.5)
[2022-10-21 06:16] LABS: ALBUMIN 1.5 g/dL (3.4-5.0); BILIRUBIN,TOTAL 0.5 mg/dL (0.1-1.0); CREATININE 1.82 mg/dL (0.60-1.30); MAGNESIUM 1.3 mg/dL (1.80-2.40); PHOSPHORUS 2.4 mg/dL (2.5-4.9); POTASSIUM 3.1 mmol/L (3.5-5.1); TOTAL PROTEIN, SERUM 4.7 g/dL (6.4-8.2)
[2022-10-21] MEDS: FentaNYL CIT 1000MCG/0.9% NACL 100 ML IV PRN (06:27)
[2022-10-21 06:46] LABS: GLUCOSE,POINT OF CARE 85 MG/DL (70-110)
[2022-10-21 08:00] VITALS: BP 146/66
[2022-10-21] MEDS: AMPICILLIN SODIUM/SULBACTAM NA 3 GM in SODIUM CHLORIDE 0.9% 100 ML IV SCH ×2 (08:34→21:06)
[2022-10-21] MEDS: AMINO ACIDS/PROTEIN HYDROLYS 30 ML TUBE PO SCH (08:34)
[2022-10-21] MEDS: DOCUSATE SODIUM 100 MG/10 ML LIQUID UDCUP GT SCH ×2 (08:34→21:00)
[2022-10-21] MEDS: HYDROCORTISONE SOD SUCC 100 MG/2 ML VIAL IVP SCH (08:35)
[2022-10-21] MEDS: LABETALOL HCL 100 MG TABLET PO SCH ×2 (08:35→21:04)
[2022-10-21] MEDS: LISINOPRIL 5 MG TABLET PO SCH (08:35)
[2022-10-21] MEDS: METOCLOPRAMIDE HCL 5 MG/ML 2 ML VIAL IVP SCH ×2 (08:35→21:05)
[2022-10-21] MEDS: AmLODIPine BESYLATE 10 MG TABLET PO SCH (08:35)
[2022-10-21] MEDS: FOLIC ACID/VIT B COMPLEX AND C TABLET PO SCH (08:35)
[2022-10-21] MEDS: ETHYL ALCOHOL 62% ANTISEPTIC NASAL SANITIZER 0.6 ML AMPUL NASAL SCH ×2 (08:35→21:04)
[2022-10-21] MEDS: BALSAM PERU/CASTOR OIL 60 GM OINTMENT TP SCH ×2 (08:36→21:06)
[2022-10-21] MEDS: ACETAMINOPHEN 325 MG TABLET PO PRN (08:36)
[2022-10-21] MEDS: LABETALOL HCL 5 MG/ML 20 ML VIAL IVP PRN ×2 (09:57→22:38)
[2022-10-21] MEDS ORDERED: MAGNESIUM SULFATE 1 GM in DEXTROSE 5%-WATER 50 ML IV ONE (10:00)
[2022-10-21] MEDS: POTASSIUM CHL 10 MEQ/WATER 50 ML IV SCH ×3 (10:38→12:00)
[2022-10-21 12:00] VITALS: BP 147/75
[2022-10-21 12:11] LABS: GLUCOSE,POINT OF CARE 87 MG/DL (70-110)
[2022-10-21 16:00] VITALS: BP 136/69
[2022-10-21] MEDS ORDERED: HEPARIN SODIUM,PORCINE 1,000 UNITS/ML VIAL IVP ONE (16:25)
[2022-10-21 17:47] LABS: GLUCOSE,POINT OF CARE 113 MG/DL (70-110)
[2022-10-21 17:47] LABS: C.DIFF GDH ANTIGEN, Stool Negative (Negative); C.DIFF TOXINS A&B, Stool Negative (Negative)
[2022-10-21 20:00] VITALS: BP 167/99
[2022-10-21] MEDS: DEXMEDETOMIDINE HCL 400 MCG in SODIUM CHLORIDE 0.9% 96 ML IV PRN (21:47)
[2022-10-22] VITALS (15 sets, daily range): BP systolic 123–177; BP diastolic 64–92
[2022-10-22 01:31] LABS: GLUCOSE,POINT OF CARE 94 MG/DL (70-110)
[2022-10-22] MEDS ORDERED: SODIUM CHLORIDE 0.9% 500 ML IV ONE (02:15)
[2022-10-22] MEDS: LABETALOL HCL 5 MG/ML 20 ML VIAL IVP PRN (03:29)
[2022-10-22] MEDS: LevETIRAcetam 250 MG in DEXTROSE 5%-WATER 100 ML IV SCH ×2 (04:04→16:13)
[2022-10-22 05:54] LABS: BASOPHILS % (AUTO) 0.5 % (0.0-2.0); EOSINOPHILS % (AUTO) 0.6 % (1.0-6.0); HEMATOCRIT 21.3 % (36-46); LYMPHOCYTES # (AUTO) 0.2 K/uL (1.0-4.8); LYMPHOCYTES % (AUTO) 2.1 % (22.0-44.0); MEAN CORPUSCULAR HEMOGLOBIN 29.3 pg (26.0-34.0); MEAN CORPUSCULAR VOLUME 92 fL (80-100); MONOCYTES # (AUTO) 0.8 K/uL (0.1-1.0); MONOCYTES % (AUTO) 9.2 % (2.0-9.0); NEUTROPHILS # (AUTO) 7.7 K/uL (1.8-7.7); PLATELET COUNT (AUTO) 112 K/uL (150-450); RED BLOOD CELL COUNT(AUTO) 2.32 MIL/uL (4.00-5.20); RED CELL DISTRIBUTION WIDTH 17.2 % (11.5-14.5)
[2022-10-22 05:56] LABS: GLUCOSE,POINT OF CARE 73 MG/DL (70-110)
[2022-10-22 06:09] LABS: CREATININE 1.95 mg/dL (0.60-1.30); MAGNESIUM 1.7 mg/dL (1.80-2.40)
[2022-10-22 06:13] LABS: POTASSIUM 2.6 mmol/L (3.5-5.1)
[2022-10-22 06:14] LABS: NEUTROPHILS % (AUTO) 87.6 % (40.0-70.0)
[2022-10-22 06:15] LABS: HEMOGLOBIN 6.8 g/dL (12.0-16.0)
[2022-10-22 07:58] LABS: BASOPHILS % (AUTO) 0.6 % (0.0-2.0); EOSINOPHILS % (AUTO) 0.6 % (1.0-6.0); HEMATOCRIT 25.8 % (36-46); HEMOGLOBIN 8.4 g/dL (12.0-16.0); LYMPHOCYTES # (AUTO) 0.3 K/uL (1.0-4.8); LYMPHOCYTES % (AUTO) 3.4 % (22.0-44.0); MEAN CORPUSCULAR HEMOGLOBIN 29.7 pg (26.0-34.0); MEAN CORPUSCULAR HGB CONC 32.4 G/dL (31.0-37.0); MEAN CORPUSCULAR VOLUME 92 fL (80-100); MONOCYTES % (AUTO) 10.2 % (2.0-9.0); NEUTROPHILS # (AUTO) 8.5 K/uL (1.8-7.7); PLATELET COUNT (AUTO) 145 K/uL (150-450); RED BLOOD CELL COUNT(AUTO) 2.82 MIL/uL (4.00-5.20); RED CELL DISTRIBUTION WIDTH 17.1 % (11.5-14.5)
[2022-10-22 08:00] LABS: NEUTROPHILS % (AUTO) 85.2 % (40.0-70.0)
[2022-10-22] MEDS: AMINO ACIDS/PROTEIN HYDROLYS 30 ML TUBE PO SCH ×2 (08:00→08:36)
[2022-10-22] MEDS: AMPICILLIN SODIUM/SULBACTAM NA 3 GM in SODIUM CHLORIDE 0.9% 100 ML IV SCH ×2 (08:24→20:46)
[2022-10-22] MEDS: DEXMEDETOMIDINE HCL 400 MCG in SODIUM CHLORIDE 0.9% 96 ML IV PRN (08:27)
[2022-10-22] MEDS: ETHYL ALCOHOL 62% ANTISEPTIC NASAL SANITIZER 0.6 ML AMPUL NASAL SCH ×2 (08:27→20:47)
[2022-10-22] MEDS: LISINOPRIL 5 MG TABLET PO SCH (08:28)
[2022-10-22] MEDS: FOLIC ACID/VIT B COMPLEX AND C TABLET PO SCH (08:28)
[2022-10-22] MEDS: AmLODIPine BESYLATE 10 MG TABLET PO SCH (08:28)
[2022-10-22] MEDS: LABETALOL HCL 100 MG TABLET PO SCH (08:29)
[2022-10-22] MEDS: METOCLOPRAMIDE HCL 5 MG/ML 2 ML VIAL IVP SCH ×2 (08:30→20:48)
[2022-10-22] MEDS: HYDROCORTISONE SOD SUCC 100 MG/2 ML VIAL IVP SCH (08:31)
[2022-10-22] MEDS: BALSAM PERU/CASTOR OIL 60 GM OINTMENT TP SCH ×2 (08:33→20:47)
[2022-10-22] MEDS: EPOETIN ALFA 10,000 UNITS/ML VIAL SQ SCH (08:33)
[2022-10-22] MEDS: DOCUSATE SODIUM 100 MG/10 ML LIQUID UDCUP GT SCH ×2 (08:36→20:48)
[2022-10-22] MEDS ORDERED: POTASSIUM PHOS,M-BASIC-D-BASIC 20 MMOL in DEXTROSE 5%-WATER 150 ML IV ONE (09:00)
[2022-10-22] MEDS ORDERED: SODIUM CHLORIDE 0.9% 2,000 ML ONE (09:20)
[2022-10-22] MEDS ORDERED: HEPARIN SODIUM,PORCINE 1,000 UNITS/ML VIAL IVCATH ONE ×2 (12:00)
[2022-10-22] MEDS: POTASSIUM CHLORIDE 10% 40 MEQ/30 ML LIQUID UDCUP NG SCH (13:47)
[2022-10-22] MEDS: MORPHINE SULFATE 2 MG/ML SYRINGE IVP PRN (16:29)
[2022-10-22 17:46] LABS: GLUCOSE,POINT OF CARE 95 MG/DL (70-110)
[2022-10-22] MEDS ORDERED: HEPARIN SODIUM,PORCINE 1,000 UNITS/ML VIAL IVP ONE (17:51)
[2022-10-22 18:21] LABS: GLUCOSE,POINT OF CARE 97 MG/DL (70-110)
[2022-10-22] MEDS: LABETALOL HCL 200 MG TABLET PO SCH (20:47)
[2022-10-23 00:37] VITALS: BP 145/76
[2022-10-23] MEDS: MORPHINE SULFATE 2 MG/ML SYRINGE IVP PRN ×6 (01:27→22:16)
[2022-10-23] MEDS: LABETALOL HCL 5 MG/ML 20 ML VIAL IVP PRN ×3 (01:29→18:59)
[2022-10-23 04:00] VITALS: BP 156/74
[2022-10-23] MEDS: LevETIRAcetam 250 MG in DEXTROSE 5%-WATER 100 ML IV SCH ×2 (04:06→15:55)
[2022-10-23 04:56] LABS: GLUCOSE,POINT OF CARE 95 MG/DL (70-110)
[2022-10-23 06:20] LABS: BASOPHILS % (AUTO) 0.5 % (0.0-2.0); EOSINOPHILS % (AUTO) 0.6 % (1.0-6.0); HEMATOCRIT 25.3 % (36-46); HEMOGLOBIN 7.9 g/dL (12.0-16.0); LYMPHOCYTES # (AUTO) 0.4 K/uL (1.0-4.8); MEAN CORPUSCULAR HEMOGLOBIN 29.1 pg (26.0-34.0); MEAN CORPUSCULAR HGB CONC 31.4 G/dL (31.0-37.0); MEAN CORPUSCULAR VOLUME 93 fL (80-100); MONOCYTES % (AUTO) 10.8 % (2.0-9.0); NEUTROPHILS # (AUTO) 7.8 K/uL (1.8-7.7); NEUTROPHILS % (AUTO) 84.1 % (40.0-70.0); PLATELET COUNT (AUTO) 169 K/uL (150-450); RED BLOOD CELL COUNT(AUTO) 2.73 MIL/uL (4.00-5.20); RED CELL DISTRIBUTION WIDTH 17.3 % (11.5-14.5)
[2022-10-23 06:34] LABS: ALBUMIN 1.8 g/dL (3.4-5.0); BILIRUBIN,TOTAL 0.4 mg/dL (0.1-1.0); TOTAL PROTEIN, SERUM 5.3 g/dL (6.4-8.2)
[2022-10-23 06:44] LABS: C-REACTIVE PROTEIN QUANT 2.93 mg/dL (0.00-0.30); CALCIUM, TOTAL 8.3 mg/dL (8.8-10.5); CREATININE 1.83 mg/dL (0.60-1.30); MAGNESIUM 1.7 mg/dL (1.80-2.40); PHOSPHORUS 2.9 mg/dL (2.5-4.9); POTASSIUM 4.4 mmol/L (3.5-5.1)
[2022-10-23 07:06] LABS: GLUCOSE,POINT OF CARE 86 MG/DL (70-110)
[2022-10-23 08:00] VITALS: BP 167/77
[2022-10-23] MEDS: ETHYL ALCOHOL 62% ANTISEPTIC NASAL SANITIZER 0.6 ML AMPUL NASAL SCH ×2 (08:29→20:07)
[2022-10-23] MEDS: DOCUSATE SODIUM 100 MG/10 ML LIQUID UDCUP GT SCH ×2 (08:29→20:06)
[2022-10-23] MEDS: AMPICILLIN SODIUM/SULBACTAM NA 3 GM in SODIUM CHLORIDE 0.9% 100 ML IV SCH ×2 (08:29→20:03)
[2022-10-23] MEDS: METOCLOPRAMIDE HCL 5 MG/ML 2 ML VIAL IVP SCH ×2 (08:29→20:28)
[2022-10-23] MEDS: AmLODIPine BESYLATE 10 MG TABLET PO SCH (08:30)
[2022-10-23] MEDS: LABETALOL HCL 200 MG TABLET PO SCH (08:30)
[2022-10-23] MEDS: POTASSIUM CHLORIDE 10% 40 MEQ/30 ML LIQUID UDCUP NG SCH (08:30)
[2022-10-23] MEDS: LISINOPRIL 5 MG TABLET PO SCH (08:30)
[2022-10-23] MEDS: FOLIC ACID/VIT B COMPLEX AND C TABLET PO SCH (08:30)
[2022-10-23] MEDS: HYDROCORTISONE SOD SUCC 100 MG/2 ML VIAL IVP SCH (08:30)
[2022-10-23] MEDS: BALSAM PERU/CASTOR OIL 60 GM OINTMENT TP SCH ×2 (08:31→20:03)
[2022-10-23] MEDS: AMINO ACIDS/PROTEIN HYDROLYS 30 ML TUBE PO SCH (08:32)
[2022-10-23] MEDS: FentaNYL CIT 1000MCG/0.9% NACL 100 ML IV PRN (08:47)
[2022-10-23] MEDS: DEXMEDETOMIDINE HCL 400 MCG in SODIUM CHLORIDE 0.9% 96 ML IV PRN (10:03)
[2022-10-23] MEDS: ACETAMINOPHEN 325 MG TABLET PO PRN (10:37)
[2022-10-23 12:00] VITALS: BP 138/69
[2022-10-23 13:01] LABS: GLUCOSE,POINT OF CARE 104 MG/DL (70-110)
[2022-10-23 15:09] LABS: APPEARANCE,URINE CLEAR (CLEAR); BILIRUBIN,URINE NEGATIVE (NEGATIVE); GLUCOSE, URINE (UA) TRACE mg/dL (NEGATIVE); KETONES,URINE NEGATIVE (NEGATIVE); LEUKOCYTE ESTERASE ,URINE NEGATIVE (NEGATIVE); NITRATE,URINE NEGATIVE (NEGATIVE); OCCULT BLOOD,URINE NEGATIVE (NEGATIVE); PH,URINE 8.5 (5.0-8.0); PROTEIN,URINE 100-200,SEE CONFIRM mg/dL (NEGATIVE); SPECIFIC GRAVITIY, URINE 1.009 (1.003-1.030); UROBILINOGEN,URINE <=1.0 mg/dL (<=1.0)
[2022-10-23 15:38] LABS: SULFOSALICYLIC ACID,URINE 2+ (Negative)
[2022-10-23 15:39] LABS: BACTERIA,URINE Rare /HPF (None Seen); RBC,URINE 0-2 /HPF (0-2); SQUAMOUS EPITHELIAL CELL,UR Few /LPF (None Seen); WBC,URINE 0-2 /HPF (0-5)
[2022-10-23 16:00] VITALS: BP 186/102
[2022-10-23 19:25] LABS: GLUCOSE,POINT OF CARE 76 MG/DL (70-110)
[2022-10-23 20:00] VITALS: BP 173/89
[2022-10-23] MEDS: CARVEDILOL 3.125 MG TABLET PO SCH (20:03)
[2022-10-24] VITALS: BP 183/99
[2022-10-24 01:01] LABS: GLUCOSE,POINT OF CARE 91 MG/DL (70-110)
[2022-10-24 01:01] LABS: GLUCOSE,POINT OF CARE 79 MG/DL (70-110)
[2022-10-24] MEDS: LevETIRAcetam 250 MG in DEXTROSE 5%-WATER 100 ML IV SCH ×2 (03:31→17:04)
[2022-10-24] MEDS: LABETALOL HCL 5 MG/ML 20 ML VIAL IVP PRN ×4 (03:32→23:05)
[2022-10-24] MEDS: MORPHINE SULFATE 2 MG/ML SYRINGE IVP PRN ×5 (03:33→23:07)
[2022-10-24 04:00] VITALS: BP 163/78
[2022-10-24] MEDS ORDERED: SODIUM CHLORIDE 0.9% 250 ML IV ONE (04:10)
[2022-10-24] MEDS: DEXMEDETOMIDINE HCL 400 MCG in SODIUM CHLORIDE 0.9% 96 ML IV PRN (04:35)
[2022-10-24 05:37] LABS: BASOPHILS % (AUTO) 0.9 % (0.0-2.0); EOSINOPHILS % (AUTO) 0.6 % (1.0-6.0); HEMOGLOBIN 7.8 g/dL (12.0-16.0); LYMPHOCYTES # (AUTO) 0.4 K/uL (1.0-4.8); LYMPHOCYTES % (AUTO) 4.5 % (22.0-44.0); MEAN CORPUSCULAR HEMOGLOBIN 29.2 pg (26.0-34.0); MEAN CORPUSCULAR HGB CONC 31.3 G/dL (31.0-37.0); MEAN CORPUSCULAR VOLUME 93 fL (80-100); MONOCYTES # (AUTO) 0.8 K/uL (0.1-1.0); MONOCYTES % (AUTO) 9.6 % (2.0-9.0); NEUTROPHILS # (AUTO) 7.4 K/uL (1.8-7.7); NEUTROPHILS % (AUTO) 84.4 % (40.0-70.0); PLATELET COUNT (AUTO) 186 K/uL (150-450); RED BLOOD CELL COUNT(AUTO) 2.67 MIL/uL (4.00-5.20); RED CELL DISTRIBUTION WIDTH 18.2 % (11.5-14.5)
[2022-10-24 05:47] LABS: CALCIUM, TOTAL 7.9 mg/dL (8.8-10.5); CREATININE 2.41 mg/dL (0.60-1.30); POTASSIUM 4.3 mmol/L (3.5-5.1)
[2022-10-24 05:48] LABS: MAGNESIUM 1.8 mg/dL (1.80-2.40); PHOSPHORUS 3.4 mg/dL (2.5-4.9)
[2022-10-24 06:31] LABS: GLUCOSE,POINT OF CARE 93 MG/DL (70-110)
[2022-10-24 08:00] VITALS: BP 131/114
[2022-10-24] MEDS: AMPICILLIN SODIUM/SULBACTAM NA 3 GM in SODIUM CHLORIDE 0.9% 100 ML IV SCH ×2 (08:15→20:20)
[2022-10-24] MEDS: METOCLOPRAMIDE HCL 5 MG/ML 2 ML VIAL IVP SCH (08:15)
[2022-10-24] MEDS: AMINO ACIDS/PROTEIN HYDROLYS 30 ML TUBE PO SCH (08:15)
[2022-10-24] MEDS: DOCUSATE SODIUM 100 MG/10 ML LIQUID UDCUP GT SCH ×2 (08:15→20:21)
[2022-10-24] MEDS: POTASSIUM CHLORIDE 10% 40 MEQ/30 ML LIQUID UDCUP NG SCH (08:16)
[2022-10-24] MEDS: ETHYL ALCOHOL 62% ANTISEPTIC NASAL SANITIZER 0.6 ML AMPUL NASAL SCH ×2 (08:16→20:20)
[2022-10-24] MEDS: FOLIC ACID/VIT B COMPLEX AND C TABLET PO SCH (08:16)
[2022-10-24] MEDS: AmLODIPine BESYLATE 10 MG TABLET PO SCH (08:17)
[2022-10-24] MEDS: CARVEDILOL 3.125 MG TABLET PO SCH (08:17)
[2022-10-24] MEDS: BALSAM PERU/CASTOR OIL 60 GM OINTMENT TP SCH ×2 (08:18→20:20)
[2022-10-24] MEDS ORDERED: LOSARTAN POTASSIUM 25 MG TABLET PO SCH (09:00)
[2022-10-24] MEDS: ACETAMINOPHEN 325 MG TABLET PO PRN (11:03)
[2022-10-24 12:00] VITALS: BP 165/88
[2022-10-24 16:00] VITALS: BP 148/79
[2022-10-24 20:00] VITALS: BP 174/89
[2022-10-24] MEDS: CARVEDILOL 25 MG TABLET PO SCH (20:22)
[2022-10-24 20:51] LABS: GLUCOSE,POINT OF CARE 117 MG/DL (70-110)
[2022-10-24 20:51] LABS: GLUCOSE,POINT OF CARE 78 MG/DL (70-110)
[2022-10-25] VITALS (22 sets, daily range): BP systolic 124–188; BP diastolic 40–113
[2022-10-25] MEDS: ACETAMINOPHEN 325 MG TABLET PO PRN ×2 (00:21→09:10)
[2022-10-25] MEDS: MORPHINE SULFATE 2 MG/ML SYRINGE IVP PRN ×3 (01:11→12:48)
[2022-10-25] MEDS: LevETIRAcetam 250 MG in DEXTROSE 5%-WATER 100 ML IV SCH ×2 (03:11→16:43)
[2022-10-25] MEDS ORDERED: SODIUM CHLORIDE 0.9% 250 ML IV ONE (03:19)
[2022-10-25] MEDS ORDERED: SODIUM CHLORIDE 0.9% 500 ML IV ONE (04:55)
[2022-10-25 05:41] LABS: GLUCOSE,POINT OF CARE 79 MG/DL (70-110)
[2022-10-25 05:46] LABS: GLUCOSE,POINT OF CARE 90 MG/DL (70-110)
[2022-10-25 07:07] LABS: BASOPHILS % (AUTO) 0.7 % (0.0-2.0); EOSINOPHILS % (AUTO) 0.6 % (1.0-6.0); HEMATOCRIT 24.7 % (36-46); HEMOGLOBIN 7.6 g/dL (12.0-16.0); LYMPHOCYTES # (AUTO) 0.5 K/uL (1.0-4.8); LYMPHOCYTES % (AUTO) 5.1 % (22.0-44.0); MEAN CORPUSCULAR HEMOGLOBIN 28.9 pg (26.0-34.0); MEAN CORPUSCULAR HGB CONC 30.6 G/dL (31.0-37.0); MEAN CORPUSCULAR VOLUME 94 fL (80-100); MONOCYTES # (AUTO) 0.8 K/uL (0.1-1.0); MONOCYTES % (AUTO) 9.3 % (2.0-9.0); NEUTROPHILS # (AUTO) 7.6 K/uL (1.8-7.7); NEUTROPHILS % (AUTO) 84.3 % (40.0-70.0); PLATELET COUNT (AUTO) 180 K/uL (150-450); RED BLOOD CELL COUNT(AUTO) 2.61 MIL/uL (4.00-5.20); RED CELL DISTRIBUTION WIDTH 17.7 % (11.5-14.5)
[2022-10-25 07:31] LABS: MAGNESIUM 1.6 mg/dL (1.80-2.40); PHOSPHORUS 4.6 mg/dL (2.5-4.9)
[2022-10-25 07:41] LABS: CALCIUM, TOTAL 7.9 mg/dL (8.8-10.5); CREATININE 2.86 mg/dL (0.60-1.30); POTASSIUM 4.5 mmol/L (3.5-5.1)
[2022-10-25] MEDS: DOCUSATE SODIUM 100 MG/10 ML LIQUID UDCUP GT SCH ×2 (09:00→20:38)
[2022-10-25] MEDS: AMPICILLIN SODIUM/SULBACTAM NA 3 GM in SODIUM CHLORIDE 0.9% 100 ML IV SCH (09:07)
[2022-10-25] MEDS: EPOETIN ALFA 10,000 UNITS/ML VIAL SQ SCH (09:08)
[2022-10-25] MEDS: ETHYL ALCOHOL 62% ANTISEPTIC NASAL SANITIZER 0.6 ML AMPUL NASAL SCH ×2 (09:09→20:38)
[2022-10-25] MEDS: FOLIC ACID/VIT B COMPLEX AND C TABLET PO SCH (09:09)
[2022-10-25] MEDS: AmLODIPine BESYLATE 10 MG TABLET PO SCH ×2 (09:10→13:18)
[2022-10-25] MEDS: CARVEDILOL 25 MG TABLET PO SCH ×3 (09:10→20:37)
[2022-10-25] MEDS: AMINO ACIDS/PROTEIN HYDROLYS 30 ML TUBE PO SCH (09:19)
[2022-10-25] MEDS: BALSAM PERU/CASTOR OIL 60 GM OINTMENT TP SCH ×2 (09:51→20:49)
[2022-10-25] MEDS ORDERED: SODIUM CHLORIDE 0.9% 2,000 ML ONE (09:56)
[2022-10-25] MEDS ORDERED: MAGNESIUM SULFATE 2 GM/WATER 50 ML IV ONE (10:15)
[2022-10-25] MEDS ORDERED: HEPARIN SODIUM,PORCINE 1,000 UNITS/ML VIAL IVCATH ONE ×2 (10:45)
[2022-10-25] MEDS: DEXMEDETOMIDINE HCL 400 MCG in SODIUM CHLORIDE 0.9% 96 ML IV PRN (13:18)
[2022-10-25] MEDS: LOSARTAN POTASSIUM 50 MG TABLET PO SCH (13:19)
[2022-10-25 15:36] LABS: C.DIFF GDH ANTIGEN, Stool Negative (Negative)
[2022-10-25 15:37] LABS: C.DIFF TOXINS A&B, Stool Negative (Negative)
[2022-10-25 17:41] LABS: GLUCOSE,POINT OF CARE 98 MG/DL (70-110)
[2022-10-25] MEDS: HYDROCODONE/ACETAMINOPHEN 5-325 MG TABLET PO PRN (18:07)
[2022-10-26] VITALS (16 sets, daily range): BP systolic 132–162; BP diastolic 81–103
[2022-10-26] MEDS: MORPHINE SULFATE 2 MG/ML SYRINGE IVP PRN ×4 (01:48→17:10)
[2022-10-26] MEDS: ACETAMINOPHEN 325 MG TABLET PO PRN (02:30)
[2022-10-26] MEDS: LevETIRAcetam 250 MG in DEXTROSE 5%-WATER 100 ML IV SCH ×2 (03:48→16:12)
[2022-10-26 05:53] LABS: BASOPHILS % (AUTO) 0.5 % (0.0-2.0); EOSINOPHILS % (AUTO) 0.2 % (1.0-6.0); HEMATOCRIT 27.8 % (36-46); HEMOGLOBIN 8.9 g/dL (12.0-16.0); LYMPHOCYTES # (AUTO) 0.5 K/uL (1.0-4.8); MEAN CORPUSCULAR HEMOGLOBIN 29.5 pg (26.0-34.0); MEAN CORPUSCULAR HGB CONC 32.2 G/dL (31.0-37.0); MEAN CORPUSCULAR VOLUME 92 fL (80-100); MONOCYTES % (AUTO) 9.2 % (2.0-9.0); NEUTROPHILS # (AUTO) 9.1 K/uL (1.8-7.7); NEUTROPHILS % (AUTO) 85.1 % (40.0-70.0); PLATELET COUNT (AUTO) 193 K/uL (150-450); RED BLOOD CELL COUNT(AUTO) 3.03 MIL/uL (4.00-5.20); RED CELL DISTRIBUTION WIDTH 17.3 % (11.5-14.5)
[2022-10-26 06:12] LABS: ALBUMIN 1.8 g/dL (3.4-5.0); BILIRUBIN,TOTAL 0.4 mg/dL (0.1-1.0); C-REACTIVE PROTEIN QUANT 12.54 mg/dL (0.00-0.30); CALCIUM, TOTAL 8.6 mg/dL (8.8-10.5); CREATININE 1.89 mg/dL (0.60-1.30); MAGNESIUM 2.5 mg/dL (1.80-2.40); PHOSPHORUS 3.2 mg/dL (2.5-4.9); POTASSIUM 3.7 mmol/L (3.5-5.1)
[2022-10-26 06:51] LABS: GLUCOSE,POINT OF CARE 101 MG/DL (70-110)
[2022-10-26 06:51] LABS: GLUCOSE,POINT OF CARE 95 MG/DL (70-110)
[2022-10-26 06:51] LABS: GLUCOSE,POINT OF CARE 80 MG/DL (70-110)
[2022-10-26] MEDS: DOCUSATE SODIUM 100 MG/10 ML LIQUID UDCUP GT SCH ×2 (08:03→20:56)
[2022-10-26] MEDS: ETHYL ALCOHOL 62% ANTISEPTIC NASAL SANITIZER 0.6 ML AMPUL NASAL SCH ×2 (08:10→20:59)
[2022-10-26] MEDS: AMINO ACIDS/PROTEIN HYDROLYS 30 ML TUBE PO SCH (08:10)
[2022-10-26] MEDS: CARVEDILOL 25 MG TABLET PO SCH ×2 (08:10→20:58)
[2022-10-26] MEDS: AmLODIPine BESYLATE 10 MG TABLET PO SCH (08:10)
[2022-10-26] MEDS: FOLIC ACID/VIT B COMPLEX AND C TABLET PO SCH (08:10)
[2022-10-26] MEDS: LOSARTAN POTASSIUM 50 MG TABLET PO SCH (08:10)
[2022-10-26] MEDS: BALSAM PERU/CASTOR OIL 60 GM OINTMENT TP SCH ×2 (08:11→20:59)
[2022-10-26] MEDS: HYDROCODONE/ACETAMINOPHEN 5-325 MG TABLET PO PRN ×2 (08:11→16:02)
[2022-10-26] MEDS: DEXMEDETOMIDINE HCL 400 MCG in SODIUM CHLORIDE 0.9% 96 ML IV PRN (08:30)
[2022-10-26 12:41] LABS: GLUCOSE,POINT OF CARE 105 MG/DL (70-110)
[2022-10-26 13:33] LABS: COVID AG,FIA SOURCE NASOPHARYNGEAL
[2022-10-26] MEDS ORDERED: *CLINICAL-CEFEPIME DOSING CLINICAL ONE (14:15)
[2022-10-26] MEDS ORDERED: CEFEPIME HCL 1 GM in DEXTROSE 5%-WATER 50 ML IV ONE (15:00)
[2022-10-26] MEDS: PANTOPRAZOLE SODIUM 40 MG/VIAL IVP SCH (15:32)
[2022-10-26] MEDS: DAPTOMYCIN 350 MG in SODIUM CHLORIDE 0.9% 50 ML IV SCH (16:30)
[2022-10-26] MEDS: FentaNYL CIT 1000MCG/0.9% NACL 100 ML IV PRN (20:59)
[2022-10-26 21:11] LABS: GLUCOSE,POINT OF CARE 94 MG/DL (70-110)
[2022-10-27] VITALS (14 sets, daily range): BP systolic 104–155; BP diastolic 50–86
[2022-10-27] MEDS: DEXMEDETOMIDINE HCL 400 MCG in SODIUM CHLORIDE 0.9% 96 ML IV PRN ×2 (00:39→11:38)
[2022-10-27 02:01] LABS: GLUCOSE,POINT OF CARE 107 MG/DL (70-110)
[2022-10-27] MEDS: LevETIRAcetam 250 MG in DEXTROSE 5%-WATER 100 ML IV SCH ×2 (04:33→15:54)
[2022-10-27 05:33] LABS: BASOPHILS % (AUTO) 0.7 % (0.0-2.0); EOSINOPHILS % (AUTO) 0.8 % (1.0-6.0); HEMATOCRIT 23.2 % (36-46); HEMOGLOBIN 7.4 g/dL (12.0-16.0); LYMPHOCYTES # (AUTO) 0.6 K/uL (1.0-4.8); LYMPHOCYTES % (AUTO) 8.6 % (22.0-44.0); MEAN CORPUSCULAR HEMOGLOBIN 28.9 pg (26.0-34.0); MEAN CORPUSCULAR HGB CONC 31.8 G/dL (31.0-37.0); MEAN CORPUSCULAR VOLUME 91 fL (80-100); MONOCYTES # (AUTO) 0.6 K/uL (0.1-1.0); MONOCYTES % (AUTO) 8.9 % (2.0-9.0); NEUTROPHILS # (AUTO) 5.8 K/uL (1.8-7.7); PLATELET COUNT (AUTO) 169 K/uL (150-450); RED BLOOD CELL COUNT(AUTO) 2.56 MIL/uL (4.00-5.20)
[2022-10-27 05:47] LABS: ALBUMIN 1.4 g/dL (3.4-5.0); BILIRUBIN,TOTAL 0.2 mg/dL (0.1-1.0); C-REACTIVE PROTEIN QUANT 10.61 mg/dL (0.00-0.30); CALCIUM, TOTAL 8.1 mg/dL (8.8-10.5); CREATININE 2.4 mg/dL (0.60-1.30); PHOSPHORUS 3.8 mg/dL (2.5-4.9); POTASSIUM 3.1 mmol/L (3.5-5.1); TOTAL PROTEIN, SERUM 5.1 g/dL (6.4-8.2)
[2022-10-27 08:16] LABS: GLUCOSE,POINT OF CARE 119 MG/DL (70-110)
[2022-10-27] MEDS: PANTOPRAZOLE SODIUM 40 MG/VIAL IVP SCH (08:30)
[2022-10-27] MEDS: LOSARTAN POTASSIUM 50 MG TABLET PO SCH (08:30)
[2022-10-27] MEDS: FOLIC ACID/VIT B COMPLEX AND C TABLET PO SCH (08:30)
[2022-10-27] MEDS: AmLODIPine BESYLATE 10 MG TABLET PO SCH (08:30)
[2022-10-27] MEDS: CARVEDILOL 25 MG TABLET PO SCH ×2 (08:30→20:08)
[2022-10-27] MEDS: EPOETIN ALFA 10,000 UNITS/ML 2 ML VIAL SQ SCH (08:32)
[2022-10-27] MEDS: DOCUSATE SODIUM 100 MG/10 ML LIQUID UDCUP GT SCH ×2 (08:42→20:08)
[2022-10-27] MEDS: AMINO ACIDS/PROTEIN HYDROLYS 30 ML TUBE PO SCH (08:42)
[2022-10-27] MEDS: ETHYL ALCOHOL 62% ANTISEPTIC NASAL SANITIZER 0.6 ML AMPUL NASAL SCH ×2 (08:42→20:08)
[2022-10-27] MEDS: BALSAM PERU/CASTOR OIL 60 GM OINTMENT TP SCH ×2 (08:43→20:08)
[2022-10-27] MEDS ORDERED: SODIUM CHLORIDE 0.9% 250 ML IV ONE (14:17)
[2022-10-27] MEDS: FentaNYL CIT 1000MCG/0.9% NACL 100 ML IV PRN (15:23)
[2022-10-27 18:26] LABS: GLUCOSE,POINT OF CARE 76 MG/DL (70-110)
[2022-10-27 18:26] LABS: GLUCOSE,POINT OF CARE 92 MG/DL (70-110)
[2022-10-27] MEDS: CEFEPIME HCL 0.5 GM in DEXTROSE 5%-WATER 50 ML IV SCH (20:07)
[2022-10-27] MEDS ORDERED: HEPARIN SODIUM,PORCINE 1,000 UNITS/ML VIAL IVP ONE (21:44)
[2022-10-28] VITALS: BP 144/86
[2022-10-28 00:36] LABS: GLUCOSE,POINT OF CARE 84 MG/DL (70-110)
[2022-10-28] MEDS: DEXMEDETOMIDINE HCL 400 MCG in SODIUM CHLORIDE 0.9% 96 ML IV PRN ×2 (01:57→14:27)
[2022-10-28 04:00] VITALS: BP 142/85
[2022-10-28] MEDS: LevETIRAcetam 250 MG in DEXTROSE 5%-WATER 100 ML IV SCH ×2 (04:06→16:13)
[2022-10-28] MEDS ORDERED: SODIUM CHLORIDE 0.9% 250 ML IV ONE (04:07)
[2022-10-28] MEDS: ACETAMINOPHEN 325 MG TABLET PO PRN ×2 (04:11→14:27)
[2022-10-28 06:56] LABS: GLUCOSE,POINT OF CARE 97 MG/DL (70-110)
[2022-10-28 08:00] VITALS: BP 145/98
[2022-10-28] MEDS: BALSAM PERU/CASTOR OIL 60 GM OINTMENT TP SCH ×2 (08:57→21:35)
[2022-10-28] MEDS: AMINO ACIDS/PROTEIN HYDROLYS 30 ML TUBE PO SCH (08:57)
[2022-10-28] MEDS: DOCUSATE SODIUM 100 MG/10 ML LIQUID UDCUP GT SCH ×2 (08:57→21:00)
[2022-10-28] MEDS: PANTOPRAZOLE SODIUM 40 MG/VIAL IVP SCH (08:58)
[2022-10-28] MEDS: CARVEDILOL 25 MG TABLET PO SCH ×2 (08:58→21:00)
[2022-10-28] MEDS: AmLODIPine BESYLATE 10 MG TABLET PO SCH (08:58)
[2022-10-28] MEDS: FOLIC ACID/VIT B COMPLEX AND C TABLET PO SCH (08:58)
[2022-10-28] MEDS: LOSARTAN POTASSIUM 50 MG TABLET PO SCH (08:58)
[2022-10-28] MEDS: ETHYL ALCOHOL 62% ANTISEPTIC NASAL SANITIZER 0.6 ML AMPUL NASAL SCH ×2 (09:35→21:35)
[2022-10-28] MEDS: DAPTOMYCIN 350 MG in SODIUM CHLORIDE 0.9% 50 ML IV SCH (17:35)
[2022-10-28] MEDS: FentaNYL CIT 1000MCG/0.9% NACL 100 ML IV PRN (20:14)
[2022-10-28] MEDS: CEFEPIME HCL 0.5 GM in DEXTROSE 5%-WATER 50 ML IV SCH (21:37)
[2022-10-28 21:56] VITALS: BP 126/75
[2022-10-28 21:56] LABS: GLUCOSE,POINT OF CARE 97 MG/DL (70-110)
[2022-10-28 21:56] LABS: GLUCOSE,POINT OF CARE 90 MG/DL (70-110)
[2022-10-29] VITALS: BP 127/75
[2022-10-29 01:16] LABS: GLUCOSE,POINT OF CARE 95 MG/DL (70-110)
[2022-10-29] MEDS ORDERED: SODIUM CHLORIDE 0.9% 250 ML IV ONE (01:59)
[2022-10-29] MEDS: DEXMEDETOMIDINE HCL 400 MCG in SODIUM CHLORIDE 0.9% 96 ML IV PRN (02:26)
[2022-10-29 04:00] VITALS: BP 143/89
[2022-10-29] MEDS: LevETIRAcetam 250 MG in DEXTROSE 5%-WATER 100 ML IV SCH ×3 (04:04→22:28)
[2022-10-29 08:00] VITALS: BP 143/76
[2022-10-29] MEDS: DOCUSATE SODIUM 100 MG/10 ML LIQUID UDCUP GT SCH ×2 (08:00→20:37)
[2022-10-29] MEDS: AMINO ACIDS/PROTEIN HYDROLYS 30 ML TUBE PO SCH (08:00)
[2022-10-29] MEDS: CARVEDILOL 25 MG TABLET PO SCH ×2 (08:01→20:38)
[2022-10-29] MEDS: AmLODIPine BESYLATE 10 MG TABLET PO SCH (08:01)
[2022-10-29] MEDS: FOLIC ACID/VIT B COMPLEX AND C TABLET PO SCH (08:01)
[2022-10-29] MEDS: LOSARTAN POTASSIUM 50 MG TABLET PO SCH (08:01)
[2022-10-29 08:11] LABS: GLUCOSE,POINT OF CARE 81 MG/DL (70-110)
[2022-10-29] MEDS: PANTOPRAZOLE SODIUM 40 MG/VIAL IVP SCH (09:50)
[2022-10-29] MEDS: EPOETIN ALFA 10,000 UNITS/ML 2 ML VIAL SQ SCH (09:50)
[2022-10-29] MEDS: BALSAM PERU/CASTOR OIL 60 GM OINTMENT TP SCH ×2 (09:51→21:49)
[2022-10-29] MEDS: ETHYL ALCOHOL 62% ANTISEPTIC NASAL SANITIZER 0.6 ML AMPUL NASAL SCH ×2 (09:51→20:38)
[2022-10-29] MEDS: ACETAMINOPHEN 650 MG RECTAL SUPPOSITORY PR PRN ×2 (10:18→18:18)
[2022-10-29 12:00] VITALS: BP 152/85
[2022-10-29] MEDS: MORPHINE SULFATE 2 MG/ML SYRINGE IVP PRN ×3 (13:06→22:11)
[2022-10-29] MEDS: MORPHINE SULFATE 100 MG/NS/PF 100 ML IV PRN ×2 (13:54→23:18)
[2022-10-29 16:00] VITALS: BP 176/112
[2022-10-29] MEDS: LABETALOL HCL 5 MG/ML 20 ML VIAL IVP PRN (16:53)
[2022-10-29 20:00] VITALS: BP 165/103
[2022-10-29] MEDS: CEFEPIME HCL 0.5 GM in DEXTROSE 5%-WATER 50 ML IV SCH (20:38)
[2022-10-30] VITALS: BP 154/91
[2022-10-30 04:00] VITALS: BP 157/93
[2022-10-30] MEDS: ACETAMINOPHEN 650 MG RECTAL SUPPOSITORY PR PRN (06:23)
[2022-10-30] MEDS: PANTOPRAZOLE SODIUM 40 MG/VIAL IVP SCH (07:36)
[2022-10-30] MEDS: CARVEDILOL 25 MG TABLET PO SCH (07:36)
[2022-10-30] MEDS: DOCUSATE SODIUM 100 MG/10 ML LIQUID UDCUP GT SCH (07:36)
[2022-10-30] MEDS: AMINO ACIDS/PROTEIN HYDROLYS 30 ML TUBE PO SCH (07:36)
[2022-10-30] MEDS: LOSARTAN POTASSIUM 50 MG TABLET PO SCH (07:36)
[2022-10-30] MEDS: ETHYL ALCOHOL 62% ANTISEPTIC NASAL SANITIZER 0.6 ML AMPUL NASAL SCH (07:36)
[2022-10-30] MEDS: AmLODIPine BESYLATE 10 MG TABLET PO SCH (07:37)
[2022-10-30] MEDS: FOLIC ACID/VIT B COMPLEX AND C TABLET PO SCH (07:37)
[2022-10-30 08:00] VITALS: BP 162/90
[2022-10-30] MEDS: MORPHINE SULFATE 2 MG/ML SYRINGE IVP PRN ×2 (08:01→11:08)
[2022-10-30] MEDS: MORPHINE SULFATE 100 MG/NS/PF 100 ML IV PRN ×4 (08:22→21:27)
[2022-10-30 12:00] VITALS: BP 151/94
[2022-10-30] MEDS ORDERED: SODIUM CHLORIDE 0.9% 250 ML IV ONE (13:37)
[2022-10-30] MEDS: ACETAMINOPHEN 500 MG/ISO-OSM 50 ML IV PRN (13:50)
[2022-10-30 16:00] VITALS: BP 154/88
[2022-10-30] MEDS: LevETIRAcetam 250 MG in DEXTROSE 5%-WATER 100 ML IV SCH ×2 (16:02→20:26)
[2022-10-30] MEDS ORDERED: ONDANSETRON HCL 4 MG/2 ML VIAL IVP PRN (18:45)
[2022-10-30 20:00] VITALS: BP 137/77
[2022-10-31 00:33] VITALS: BP 147/89
[2022-10-31 04:00] VITALS: BP 156/99
[2022-10-31] MEDS: MORPHINE SULFATE 100 MG/NS/PF 100 ML IV PRN ×3 (04:05→13:55)
[2022-10-31] MEDS: ACETAMINOPHEN 500 MG/ISO-OSM 50 ML IV PRN (04:21)
[2022-10-31 08:00] VITALS: BP 143/81
[2022-10-31 09:56] VITALS: BP 129/99
[2022-10-31 16:22] VITALS: BP 139/95
[2022-10-31 19:50] VITALS: BP 145/108
[2022-11-01] MEDS: MORPHINE SULFATE 100 MG/NS/PF 100 ML IV PRN ×5 (00:12→21:54)
[2022-11-01] MEDS: ACETAMINOPHEN 500 MG/ISO-OSM 50 ML IV PRN ×2 (03:45→21:58)
[2022-11-01 08:50] VITALS: BP 157/111
[2022-11-01 18:54] VITALS: BP 158/114
[2022-11-01 20:45] VITALS: BP 170/119
[2022-11-02] MEDS: MORPHINE SULFATE 100 MG/NS/PF 100 ML IV PRN ×4 (03:03→21:20)
[2022-11-02 04:38] VITALS: BP 186/104
[2022-11-02] MEDS: ACETAMINOPHEN 500 MG/ISO-OSM 50 ML IV PRN (06:41)
[2022-11-02 08:06] VITALS: BP 151/103
[2022-11-02 15:24] VITALS: BP 155/111
[2022-11-02 20:02] VITALS: BP 120/68
[2022-11-03] MEDS: MORPHINE SULFATE 100 MG/NS/PF 100 ML IV PRN ×3 (03:19→09:07)
[2022-11-03 07:04] VITALS: BP 151/104
[2022-11-03] MEDS ORDERED: LORazepam 2 MG/ML VIAL IVP PRN (09:45)
== END 2022-11-03 10:10 | DRG 870 ==
LOC: EMS 19:44 → ICU 23:56 → 6N 10-31 09:20
PROVIDERS: ADMIT Internal Medicine; ATTEND Internal Medicine
PROC: 5A1955Z Respiratory Ventilation, Greater than 96 Consecutive Hours (ICD-10-PCS; principal; 2022-10-09)
PROC: 0BH17EZ Insertion of Endotracheal Airway into Trachea, Via Natural or Artificial Opening (ICD-10-PCS; 2022-10-09)
PROC: 5A1D70Z Performance of Urinary Filtration, Intermittent, Less than 6 Hours Per Day (ICD-10-PCS; 2022-10-10)
PROC: 30233N1 Transfusion of Nonautologous Red Blood Cells into Peripheral Vein, Percutaneous Approach (ICD-10-PCS; 2022-10-14)
PROC: 30233R1 Transfusion of Nonautologous Platelets into Peripheral Vein, Percutaneous Approach (ICD-10-PCS; 2022-10-14)
PROC: 5A1D70Z Performance of Urinary Filtration, Intermittent, Less than 6 Hours Per Day (ICD-10-PCS; 2022-10-15)
PROC: 5A1D70Z Performance of Urinary Filtration, Intermittent, Less than 6 Hours Per Day (ICD-10-PCS; 2022-10-18)
PROC: 5A1D70Z Performance of Urinary Filtration, Intermittent, Less than 6 Hours Per Day (ICD-10-PCS; 2022-10-19)
PROC: 5A1D70Z Performance of Urinary Filtration, Intermittent, Less than 6 Hours Per Day (ICD-10-PCS; 2022-10-20)
PROC: 5A1D70Z Performance of Urinary Filtration, Intermittent, Less than 6 Hours Per Day (ICD-10-PCS; 2022-10-22)
PROC: 5A1D70Z Performance of Urinary Filtration, Intermittent, Less than 6 Hours Per Day (ICD-10-PCS; 2022-10-25)
PROC: 5A1D70Z Performance of Urinary Filtration, Intermittent, Less than 6 Hours Per Day (ICD-10-PCS; 2022-10-27)
DX: A41.01 Sepsis due to Methicillin susceptible Staphylococcus aureus (principal); I21.A1 Myocardial infarction type 2; G92.8 Other toxic encephalopathy; R65.21 Severe sepsis with septic shock; N18.6 End stage renal disease; E43 Unspecified severe protein-calorie malnutrition; I50.23 Acute on chronic systolic (congestive) heart failure; J15.211 Pneumonia due to Methicillin susceptible Staphylococcus aureus; Z66 Do not resuscitate; D65 Disseminated intravascular coagulation [defibrination syndrome]; J96.01 Acute respiratory failure with hypoxia; J96.02 Acute respiratory failure with hypercapnia; D68.9 Coagulation defect, unspecified; D84.9 Immunodeficiency, unspecified; D62 Acute posthemorrhagic anemia; E87.20 Acidosis, unspecified; I13.2 Hypertensive heart and chronic kidney disease with heart failure and with stage 5 chronic kidney disease, or end stage renal disease; I42.9 Cardiomyopathy, unspecified; K92.2 Gastrointestinal hemorrhage, unspecified; N17.9 Acute kidney failure, unspecified; Z99.11 Dependence on respirator [ventilator] status; I31.39 Other pericardial effusion (noninflammatory); I42.0 Dilated cardiomyopathy; G93.1 Anoxic brain damage, not elsewhere classified; Z20.822 Contact with and (suspected) exposure to COVID-19; Z51.5 Encounter for palliative care; I46.9 Cardiac arrest, cause unspecified; R57.0 Cardiogenic shock; D50.9 Iron deficiency anemia, unspecified; G40.909 Epilepsy, unspecified, not intractable, without status epilepticus; E16.2 Hypoglycemia, unspecified; E83.39 Other disorders of phosphorus metabolism; L98.9 Disorder of the skin and subcutaneous tissue, unspecified; Z99.2 Dependence on renal dialysis; D63.1 Anemia in chronic kidney disease; E87.6 Hypokalemia; E83.42 Hypomagnesemia; F41.1 Generalized anxiety disorder; M32.14 Glomerular disease in systemic lupus erythematosus; Z79.899 Other long term (current) drug therapy; Z88.2 Allergy status to sulfonamides; Z88.8 Allergy status to other drugs, medicaments and biological substances; Z68.20 Body mass index [BMI] 20.0-20.9, adult
CPT/HCPCS: 31500; 36245; 36569; 36600; 51702; 70450; 70551; 71045; 71275; 76937; 80048; 80053; 80076; 80158; 80202; 80307; 80361; 81001; 81002; 82247; 82248; 82271; 82550; 82805; 82955; 82962; 83010; 83605; 83615; 83735; 83880; 84100; 84145; 84484; 84702; 85007; 85014; 85018; 85025; 85027; 85041; 85045; 85362; 85384; 85610; 85651; 85730; 85732; 86140; 86171; 86403; 86480; 86631; 86632; 86635; 86645; 86709; 86738; 86850; 86900; 86901; 86923; 87040; 87070; 87081; 87186; 87205; 87281; 87324; 87340; 87449; 87481; 87496; 87804; 87899; 88112; 88305; 88312; 90935; 90947; 92950; 93005; 93306; 93308; 93970; 93971; 94002; 94003; 94640; 95816; 97162; 99291; C9113; G0238; G0378; J0131; J0171; J0295; J0461; J0610; J0692; J0712; J0878; J0885; J1265; J1450; J1644; J1720; J1815; J2060; J2185; J2250; J2270; J2405; J2543; J2704; J2765; J2930; J3370; J3475; J3480; J3490; J7030; J7040; J7050; J7060; J7120; P9016; P9035; Q9967; 36415-L1; 36415-TC; G0480; J7613; U0003; X7700